=== PATIENT | female | born 1945 | race Caucasian/White ===

== ENCOUNTER 2020-08-08 04:35 | Emergency (ER) | payer MEDICARE, BC ==
[2020-08-08 04:47] VITALS: TEMP 97.8
--- NOTE | 2020-08-08 04:53 | ED ---
Chest Pain HPI - General Chief Complaint: Chest Pain Stated Complaint: Chest Pain Time Seen by Provider: 08/08/20 04:42 Source: patient, EMS Mode of arrival: EMS Limitations: no limitations - History of Present Illness Initial Comments: this patient is a 75-year-old woman who presents with chest and back pain that started around 2 AM while she was trying to go back to sleep. The patient had been up to use the bathroom. She noticed that she was having some burning type pain the substernal area and are straight through to her back. She states that the episode lasted about 2-3 minutes. When resolves tried to go back to sleep, but she had another episode. She states she had a total of about 3 or 4 episodes each lasting about 2-3 minutes. Accompanying one of the episodes she did have some tingling to both arms. She felt hot at one point. MD Complaint: other Onset/Timin -: hour(s) Onset: during rest Pain Location: other Pain Radiation: RUE, LUE, back Severity: moderate Quality: other (burning) Consistency: intermittent, now resolved Improves With: nothing Worsens With: nothing Treatments Prior to Arrival: none - Related Data Home Medications Medication Instructions Recorded Confirmed Estradiol Cream [Estrace Cream 1 applic VAGINAL SUWE 02/25/16 04/03/17 0.01%] LORazepam [Ativan] 0.5 - 1 mg PO HS PRN 02/25/16 04/03/17 Loperamide [Imodium] 2 mg PO QID PRN 04/03/17 04/03/17 Previous Rx's Medication Instructions Recorded Aspirin EC [Ecotrin Low Dose] 81 mg PO DAILY #30 tablet. 04/05/17 Allergies Allergy/AdvReac Type Severity Reaction Status Date / Time Sulfa (Sulfonamide Allergy chills,naus Verified 08/08/20 04:47 Antibiotics) ea Review of Systems ROS Statement: Those systems with pertinent positive or pertinent negative responses have been documented in the HPI. ROS Other: All systems not noted in ROS Statement are negative. EKG Findings - EKG Results: EKG: interpreted by ADAL, sinus rhythm (ate 91 bpm), normal QRS, normal ST/T - Blocks, [place], Hypertrophy, ST Abn: QRS axis and voltage: left axis deviation (-30 to -90) Past Medical History Past Medical History: No Reported History Additional Past Medical History / Comment(s): IBS, T2 T5 Fracture History of Any Multi-Drug Resistant Organisms: None Reported Past Surgical History: Breast Surgery, Cholecystectomy, Hysterectomy, Tonsillectomy Additional Past Surgical History / Comment(s): breast biopsies Past Anesthesia/Blood Transfusion Reactions: Motion Sickness Additional Past Anesthesia/Blood Transfusion Reaction / Comment(s): "balance issue" Past Psychological History: Anxiety, Depression Smoking Status: Never smoker Past Alcohol Use History: Occasional Past Drug Use History: None Reported - Past Family History Mother Family Medical History: Coronary Artery Disease (CAD), Dementia, Myocardial Infarction ([place]) Additional Family Medical History / Comment(s): Mother at age 86 with previous history of myocardial infarction at age 67 requiring CABG. Patient's grandfather at age 60 from a myocardial infarction. Patient's uncle at age 46 from a myocardial infarction and that had been his third heart attack. Father Family Medical History: Dementia Additional Family Medical History / Comment(s): Father was healthy with no major medical problems. Brother(s) Family Medical History: Cancer Additional Family Medical History / Comment(s): Patient has 1 brother with history of prostate cancer. Patient does not have any sisters. Son(s) Additional Family Medical History / Comment(s): Patient has 2 sons and one was diagnosed with diabetes mellitus type 1 at age 26 and 1 son has irritable bowel syndrome. Daughter(s) Additional Family Medical History / Comment(s): Patient has one daughter with history of rheumatoid arthritis and polycystic ovarian disorder. General Exam Limitations: no limitations General appearance: alert, in no apparent distress Head exam: Present: atraumatic, normocephalic Eye exam: Present: normal appearance. Absent: scleral icterus, conjunctival injection ENT exam: Present: normal oropharynx Neck exam: Present: normal inspection, full ROM Respiratory exam: Present: normal lung sounds bilaterally. Absent: respiratory distress, wheezes, rales, rhonchi, stridor, chest wall tenderness Cardiovascular Exam: Present: regular rate, normal rhythm, normal heart sounds. Absent: systolic murmur, diastolic murmur, rubs, gallop GI/Abdominal exam: Present: soft. Absent: distended, tenderness, guarding, rebound, rigid, mass Extremities exam: Present: normal inspection, normal capillary refill. Absent: pedal edema, calf tenderness Back exam: Present: normal inspection. Absent: CVA tenderness (R), CVA tenderness (L) Neurological exam: Present: alert Skin exam: Present: warm, dry, intact, normal color. Absent: rash Course Vital Signs 08/08/20 08/08/20 08/08/20 04:37 05:03 05:46 Temperature 97.8 F Pulse Rate 90 85 Respiratory 20 22 20 Rate Blood Pressure 142/81 130/83 O2 Sat by Pulse 98 98 Oximetry Disposition Clinical Impression: Chest pain Disposition: HOME SELF-CARE Condition: Good Instructions (If sedation given, give patient instructions): Chest Pain (ED) Is patient prescribed a controlled substance at d/c from ED?: No Referrals: Delvin Servin MD [Primary Care Provider] - 1-2 days
[2020-08-08 05:04] LABS: Basophils % (A) 1 %; Eosinophils # (A) 0.3 k/uL (0-0.7); Eosinophils % (A) 4 %; HCT 41.3 % (34.0-46.0); HGB 13.3 gm/dL (11.4-16.0); Lymphocytes # (A) 1.3 k/uL (1.0-4.8); Lymphocytes % (A) 19 %; MCH 29.7 pg (25.0-35.0); MCHC 32.2 g/dL (31.0-37.0); MCV 92.1 fL (80.0-100.0); Mean Platelet Volume 7.2; Monocytes # (A) 0.3 k/uL (0-1.0); Monocytes % (A) 5 %; Neutrophils # (A) 4.7 k/uL (1.3-7.7); Neutrophils % (A) 69 %; Platelet Count 264 k/uL (150-450); RBC 4.49 m/uL (3.80-5.40); RDW 13.3 % (11.5-15.5); WBC 6.7 k/uL (3.8-10.6)
[2020-08-08 05:15] LABS: Partial Thromboplastin Time 22.9 sec (22.0-30.0); Prothrombin Time 10.5 sec (9.0-12.0)
[2020-08-08 05:20] LABS: Albumin 4.2 g/dL (3.5-5.0); Magnesium 2.1 mg/dL (1.6-2.3); Potassium 4.6 mmol/L (3.5-5.1); Total Bilirubin 0.4 mg/dL (0.2-1.3); Total Protein 6.7 g/dL (6.3-8.2)
--- NOTE | 2020-08-08 05:28 | XR ---
EXAM: XR Chest, 2 Views CLINICAL HISTORY: ITS.REASON XR Reason: Chest Pain TECHNIQUE: Frontal and lateral views of the chest. COMPARISON: Chest radiograph April 03, 2017 FINDINGS/IMPRESSION: Hyperinflation with flattening of the diaphragms and emphysema, consistent with COPD. No focal infiltrate. Small right pleural effusion. Mild vascular congestion. Cardiomegaly. Degenerative changes of the spine. Diffuse osseous demineralization.
[2020-08-08 06:04] VITALS: BP 130/83
[2020-08-08 06:46] VITALS: PULSE 77; RESP 18
== END 2020-08-08 06:46 | disposition home or self-care (01) ==
LOC: EC 04:35
DX: R07.2 Precordial pain (principal); M54.9 Dorsalgia, unspecified; F41.9 Anxiety disorder, unspecified; F32.9 Major depressive disorder, single episode, unspecified; Z79.899 Other long term (current) drug therapy; Z88.2 Allergy status to sulfonamides; Z90.49 Acquired absence of other specified parts of digestive tract; Z90.710 Acquired absence of both cervix and uterus; Z82.49 Family history of ischemic heart disease and other diseases of the circulatory system
CPT/HCPCS: 36415; 71046; 80053; 82150; 83690; 83735; 84484; 85025; 85610; 85730; 93005; 99285

== ENCOUNTER → 2022-05-31 | Outpatient (CLI) | payer MEDICARE, BC ==
--- NOTE | 2022-06-01 09:57 | CA ---
Transthoracic Echo Report Name: Doretha Guevara Age: 76 Gender: F : 1945 Exam Date: 05/31/2022 14:13 Exam Location: [facility] Ht (in): 67 Wt (lb): 150 Ordering Physician: Delvin Servin MD Attending/Referring Phys: [employer] Machine Tender Vandana Dexter RDCS Procedure CPT: Indications: R06.02 SOB Cardiac Hx: Technical Quality: Good Contrast 1: N/A Total Dose (mL): Contrast 2: Total Dose (mL): MEASUREMENTS (Male / Female) Normal Values 2D ECHO LV Diastolic Diameter PLAX 4.3 cm 4.2 - 5.9 / 3.9 - 5.3 cm LV Systolic Diameter PLAX 2.6 cm IVS Diastolic Thickness 1.2 cm 0.6 - 1.0 / 0.6 - 0.9 cm LVPW Diastolic Thickness 0.9 cm 0.6 - 1.0 / 0.6 - 0.9 cm LV Relative Wall Thickness 0.5 RV Internal Dim ED PLAX 2.4 cm LA Systolic Diameter LX 3.5 cm 3.0 - 4.0 / 2.7 - 3.8 cm M-MODE Aortic Root Diameter MM 2.8 cm LA Systolic Diameter MM 3.8 cm LA Ao Ratio MM 1.3 MV E Point Septal Separation 0.4 cm AV Cusp Separation MM 1.8 cm DOPPLER MV Area PHT 4.8 cm??? Mitral E Point Velocity 70.2 cm/s Mitral A Point Velocity 51.3 cm/s Mitral E to A Ratio 1.4 MV Deceleration Time 156.5 ms MV E' Velocity 9.6 cm/s Mitral E to MV E' Ratio 7.3 FINDINGS Left Ventricle Normal left ventricular size, wall thickness, left ventricular ejection fraction is estimated at 55%. Right Ventricle The right ventricle is normal in size and function. Right Atrium The right atrium is normal in size. Left Atrium The left atrium is normal in size. Mitral Valve Structurally normal mitral valve without significant stenosis or prolapse. There is mild mitral regurgitation. Aortic Valve Structurally normal aortic valve without significant sclerosis or stenosis. There is no aortic regurgitation. Tricuspid Valve Structurally normal tricuspid valve without significant stenosis. Pulmonary artery systolic pressure is normal. Pulmonic Valve Structurally normal pulmonic valve without significant stenosis. There is no pulmonic regurgitation. Pericardium Normal pericardium without effusion. Aorta Normal aortic root dimension. CONCLUSIONS Left ventricular ejection fraction 55% Mild mitral regurgitation RVSP normal No pericardial effusion Previewed by: Dr. Fawad Avila DO (Electronically Signed) Final Date: 01 June 2022 09:57
== END | disposition home or self-care (01) ==
LOC: RADECHMAIN 13:38
PROVIDERS: ATTEND Internal Medicine Geriatric Medicine
DX: I34.0 Nonrheumatic mitral (valve) insufficiency (principal)
CPT/HCPCS: 93306

== ENCOUNTER 2022-12-15 08:36 | Day surgery (SDC) | payer MEDICARE, BC ==
[2022-12-09 15:25] VITALS: BMI 23.9
[2022-12-15] MEDS ORDERED: LACTATED RINGERS 1,000 ML IV ONE (09:11)
[2022-12-15] MEDS ORDERED: LACTATED RINGERS 1,000 ML IV SCH (09:13)
[2022-12-15] MEDS ORDERED: LIDOCAINE 1% (10MG/ML) FOR IV START INTRADERMA PRN (09:13)
[2022-12-15] MEDS ORDERED: ONDANSETRON 4 MG/2 ML VIAL IVP PRN (09:13)
[2022-12-15 09:19] VITALS: TEMP 97
[2022-12-15] MEDS ORDERED: PROPOFOL 10 MG/ML 20 ML VIAL IV ONE (10:06)
[2022-12-15] MEDS ORDERED: LIDOCAINE 2% INJ 20 MG/ML (2 ML VIAL) ONE (10:06)
[2022-12-15] MEDS ORDERED: SODIUM CHLORIDE 0.9% 500 ML 500 ML IV ONE (10:38)
--- NOTE | 2022-12-15 10:39 | P.PCN ---
Date of Procedure: 12/15/22 Procedure(s) Performed: BRIEF HISTORY: Patient is a 77-year-old pleasant white female scheduled for an elective colonoscopy as a part of evaluation of chronic diarrhea of several years duration. PROCEDURE PERFORMED: Colonoscopy with random biopsies. PREOPERATIVE DIAGNOSIS: Chronic diarrhea. IV sedation per Anesthesia. PROCEDURE: After informed consent was obtained, the patient, was brought into the endoscopy unit. IV sedation was administered by Anesthesia under continuous monitoring. Digital rectal examination was normal. Initially the Olympus CF-160 flexible video colonoscope was then inserted in the rectum, gradually advanced into the sigmoid and further advancement was not possible because of acute angle duration this area. The scope was removed and a pediatric colonoscopy was then introduced into the rectum and still could not advance the scope through the sigmoid colon. Hence at this time I used an upper endoscopy as the scope was then gradually advanced into the cecum with [id number] difficulty. Careful examination was performed as the scope was gradually being withdrawn. Ileocecal vawasisualized and appeared normal. Prep was excellent. Mucosa of the cecum, ascending colon, transverse colon, descending colon, sigmoid colon, and rectum appeared normal. Random biopsies were done from ascending and descending colon to rule out microscopic/collagenous colitis. Scattered sigmoid diverticulosis seen. Retroflexion was performed in the rectum and no lesions were seen. The patient tolerated the procedure well. IMPRESSION: Normal-appearing colon from rectum to cecum with no evidence of colorectal neoplasia . Scattered sigmoid diverticulosis. RECOMMENDATIONS: Findings of this examination were discussed with the patient is a family. She was advised to follow with the biopsy results.. Continue with Questran as needed.
[2022-12-15 10:49] VITALS: PULSE 67
[2022-12-15 11:02] VITALS: BP 155/87; RESP 16
== END 2022-12-15 11:20 | disposition home or self-care (01) ==
LOC: ORWHC2ENDO 08:36
PROVIDERS: ATTEND Internal Medicine Gastroenterology
DX: K52.9 Noninfective gastroenteritis and colitis, unspecified (principal); K57.30 Diverticulosis of large intestine without perforation or abscess without bleeding
CPT/HCPCS: 45380; J2704; J2001; 88305

== ENCOUNTER 2023-12-02 17:10 | Observation (INO) | payer MEDICARE, BC ==
--- NOTE | 2023-12-02 17:33 | ED ---
Altered Mental Status HPI - General Source: patient, family, RN notes reviewed Mode of arrival: ambulatory Limitations: no limitations <Gayatri Arevalo - Last Filed: 12/02/23 17:32> <Dayron Galan - Last Filed: 12/02/23 23:51> - General Chief Complaint: Altered Mental Status Stated Complaint: AMS/blurry vision Time Seen by Provider: 12/02/23 17:32 - History of Present Illness Initial Comments: Patient is a 78-year-old female presented to the ER with chief complaint of confusion. Patient states she woke up this morning and has been extremely confused all day. Patient also was endorsing mid back pain. Denies any other complaints. (Gayatri Arevalo) 78-year-old female presents to the ED with a chief complaint of confusion. Per patient, has been very confused starting today. States that she incorrectly thought her parents were at the door when it was actually [facility] although her parents have been for the past 10 years. Per sons, upon questioning reportedly answers questions incorrectly. Patient also additionally notes some visual hallucinations as well. While in the ED, she told a nurse that she saw a puff of smoke, out of her computer. No chest pain or shortness of breath. Patient does note some intermittent abdominal pain as well. No changes in bowel or bladder habits. No fever or chills. No other complaints at this time. (Dayron Galan) - Related Data Home Medications Medication Instructions Recorded Confirmed LORazepam [Ativan] 0.5 - 1 mg PO HS PRN 02/25/16 12/15/22 Cholestyramine (with Sugar) 378 gm PO DAILY 12/09/22 12/15/22 [Cholestyramine Powder] Escitalopram [Lexapro] 10 mg PO DAILY 12/09/22 12/15/22 L.acidoph,Paracasei, B.lactis 1 each PO DAILY 12/09/22 12/15/22 [Probiotic] Latanoprost [Latanoprost 0.005%] 1 drop RIGHT EYE HS 12/09/22 12/15/22 Allergies Allergy/AdvReac Type Severity Reaction Status Date / Time Sulfa (Sulfonamide Allergy chills,naus Verified 12/15/22 09:13 Antibiotics) ea Review of Systems ROS Other: All systems not noted in ROS Statement are negative. <Gayatri Arevalo - Last Filed: 12/02/23 17:32> ROS Other: All systems not noted in ROS Statement are negative. <Dayron Galan - Last Filed: 12/02/23 23:51> ROS Statement: Those systems with pertinent positive or pertinent negative responses have been documented in the HPI. 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 History of Any Multi-Drug Resistant Organisms: None Reported Past Surgical History: Breast Surgery, Cholecystectomy, Hysterectomy, Tonsillectomy Additional Past Surgical History / Comment(s): breast biopsies, COLONOSCOPY Past Anesthesia/Blood Transfusion Reactions: Motion Sickness Additional Past Anesthesia/Blood Transfusion Reaction / Comment(s): "balance issue" Past Psychological History: Anxiety, Depression Smoking Status: Never smoker - Past Family History Mother Family Medical History: Coronary Artery Disease (CAD), Dementia, Myocardial Infarction (MS) Additional Family Medical History / Comment(s): Mother at age 86 with previous history of myocardial infarction at age 67 requiring CABG. Patient's grandfather at age 60 from a myocardial infarction. Patient's uncle at age 46 from a myocardial infarction and that had been his third heart attack. Father Family Medical History: Dementia Additional Family Medical History / Comment(s): Father was healthy with no major medical problems. Brother(s) Family Medical History: Cancer Additional Family Medical History / Comment(s): Patient has 1 brother with history of prostate cancer. Patient does not have any sisters. Son(s) Additional Family Medical History / Comment(s): Patient has 2 sons and one was diagnosed with diabetes mellitus type 1 at age 26 and 1 son has irritable bowel syndrome. Daughter(s) Additional Family Medical History / Comment(s): Patient has one daughter with history of rheumatoid arthritis and polycystic ovarian disorder. <Gayatri Arevalo - Last Filed: 12/02/23 17:32> General Exam Limitations: no limitations <Gayatri Arevalo - Last Filed: 12/02/23 17:32> General appearance: alert, in no apparent distress Eye exam: Present: normal appearance, PERRL, EOMI Neck exam: Present: normal inspection Respiratory exam: Present: normal lung sounds bilaterally Cardiovascular Exam: Present: regular rate, normal rhythm GI/Abdominal exam: Present: soft Back exam: Present: normal inspection Neurological exam: Present: alert, oriented X3, CN II-XII intact (Rapid alternating hand movements, cjnf-by-tnaj, [id number]-[id number] intact) Skin exam: Present: warm, dry <Dayron Galan - Last Filed: 12/02/23 23:51> - General Exam Comments Initial Comments: Visual Physical Exam Vital signs reviewed General: Well-appearing, nontoxic, no acute distress. Head: Normocephalic, atraumatic Eyes: PERRLA, EOMI ENT: Airway patent Chest: Nonlabored breathing Skin: No visual rash, normal skin tone Neuro: Alert and oriented 3 Musculoskeletal: No gross abnormalities (Gayatri Arevalo) Course Vital Signs 12/02/23 12/02/23 17:17 22:20 Temperature 99.3 F 97.9 F Pulse Rate 94 77 Respiratory 16 16 Rate Blood Pressure 174/96 151/81 O2 Sat by Pulse 97 97 Oximetry Medical Decision Making <Gayatri Arevalo - Last Filed: 12/02/23 17:32> - Lab Data Result diagrams: 12/02/23 17:41 12/02/23 17:41 <Dayron Galan - Last Filed: 12/02/23 23:51> - Medical Decision Making I performed the quick note portion of this chart. Electronically signed by Gayatri Arevalo PA-C (Gayatri Arevalo) Was pt. sent in by a medical professional or institution (SIM Singh, CREAM SEPARATOR OPERATOR, urgent care, hospital, or care home...) When possible be specific @ -No Did you speak to anyone other than the patient for history (EMS, parent, family, police, friend...)? What history was obtained from this source @ -Spoke to patient's sons for parts of history. Did you review nursing and triage notes (agree or disagree)? Why? @ -I reviewed and agree with nursing and triage notes Were old charts reviewed (outside hosp., previous admission, EMS record, old EKG, old radiological studies, urgent care reports/EKG's, care home records)? Report findings @ -No old charts were reviewed Differential Diagnosis (chest pain, altered mental status, abdominal pain women, abdominal pain men, vaginal bleeding, weakness, fever, dyspnea, syncope, headache, dizziness, GI bleed, back pain, seizure, CVA, palpatations, mental health, musculoskeletal)? @ -Differential Altered Mental Status: Hypoglycemia, DKA, hypercapnia, ETOH, overdose, CO poisoning, trauma, myxedema coma, HTN encephalopathy, infection, encephalitis, psychosis, intercranial hemorrhage, hepatic encephalopathy, meningitis, CVA, this is not meant to be an all-inclusive list EKG interpreted by me (3pts min.). @ -EKG interpreted by me showing a sinus rhythm at 90 bpm with nonspecific changes. WV 204, QRS 83, QT/QTc 372/420. X-rays interpreted by me (1pt min.). @ -Chest x-ray interpreted me showing no evidence of acute finding CT interpreted by me (1pt min.). @ -CT brain interpreted me showing no evidence of acute finding. U/S interpreted by me (1pt. min.). @ -None done What testing was considered but not performed or refused? (CT, X-rays, U/S, labs)? Why? @ -None What meds were considered but not given or refused? Why? @ -None Did you discuss the management of the patient with other professionals (professionals i.e. , PA, CREAM SEPARATOR OPERATOR, lab, RT, psych nurse, social welfare research worker, golf sales manager, teacher, information management officer, case finisher)? Give summary @ -Case discussed with Dr. Servin, who accepts admission Was smoking cessation discussed for >3mins.? @ -No Was critical care preformed (if so, how long)? @ -No Were there social determinants of health that impacted care today? How? (Homelessness, low income, unemployed, alcoholism, drug addiction, transportation, low edu. Level, literacy, decrease access to med. care, senior care, rehab)? @ -No Was there de-escalation of care discussed even if they declined (Discuss DNR or withdrawal of care, Hospice)? DNR status @ -No What co-morbidities impacted this encounter? (DM, HTN, Smoking, COPD, CAD, Cancer, CVA, ARF, Chemo, Hep., AIDS, mental health diagnosis, sleep apnea, morbid obesity)? @ -None Was patient admitted / discharged? Hospital course, mention meds given and route , prescriptions, significant lab abnormalities, going to OR and other pertinent info. @ -Admission 78-year-old female presenting to the ED with 1 day onset of intermittent confusion and intermittent visual hallucinations. Laboratory studies at this time including CBC, CMP, UA, troponin, serology panel largely unremarkable. Imaging studies including chest x-ray and CT brain revealed no acute process. With ongoing confusion and intermittent visual hallucinations patient will be a dmitted to observation with consult to neurology. Undiagnosed new problem with uncertain prognosis? @ -No Drug Therapy requiring intensive monitoring for toxicity (Heparin, Nitro, Insulin, Cardizem)? @ -No Were any procedures done? @ -No Diagnosis/symptom? @ -Confusion, visual hallucinations Acute, or Chronic, or Acute on Chronic? @ -Acute Uncomplicated (without systemic symptoms) or Complicated (systemic symptoms)? @ -Complicated Side effects of treatment? @ -No Exacerbation, Progression, or Severe Exacerbation? @ -No Poses a threat to life or bodily function? How? (Chest pain, USA, MS, pneumonia, PE, COPD, DKA, ARF, appy, cholecystitis, CVA, Diverticulitis, Homicidal, Suicidal, threat to staff... and all critical care pts) @ -Unlikely (Dayron Galan) - Lab Data Lab Results 12/02/23 12/02/23 12/02/23 Range/Units 17:41 17:41 17:41 WBC 5.5 (3.8-10.6) k/uL RBC 4.46 (3.80-5.40) m/uL Hgb 13.3 (11.4-16.0) gm/dL Hct 41.1 (34.0-46.0) % MCV 92.3 (80.0-100.0) fL MCH 29.9 (25.0-35.0) pg MCHC 32.4 (31.0-37.0) g/dL RDW 13.2 (11.5-15.5) % Plt Count 252 (150-450) k/uL MPV 7.3 Neutrophils % 70 % Lymphocytes % 20 % Monocytes % 5 % Eosinophils % 2 % Basophils % 1 % Neutrophils # 3.9 (1.3-7.7) k/uL Lymphocytes # 1.1 (1.0-4.8) k/uL Monocytes # 0.3 (0-1.0) k/uL Eosinophils # 0.1 (0-0.7) k/uL Basophils # 0.0 (0-0.2) k/uL PT 10.3 (10.0-12.5) sec INR 0.9 (<1.2) APTT 24.5 (22.0-30.0) sec Sodium 139 (137-145) mmol/L Potassium 3.9 (3.5-5.1) mmol/L Chloride 107 (98-107) mmol/L Carbon Dioxide 23 (22-30) mmol/L Anion Gap 9 mmol/L BUN 15 (7-17) mg/dL Creatinine 0.72 (0.52-1.04) mg/dL Est GFR (CKD-EPI)AfAm >90 (>60 ml/min/1.73 sqM) Est GFR (CKD-EPI)NonAf 82 (>60 ml/min/1.73 sqM) Glucose 95 (74-99) mg/dL Calcium 9.4 (8.4-10.2) mg/dL Total Bilirubin 0.6 (0.2-1.3) mg/dL AST 32 (14-36) U/L ALT 16 (4-34) U/L Alkaline Phosphatase 103 (38-126) U/L Troponin I (0.000-0.034) ng/mL Total Protein 7.2 (6.3-8.2) g/dL Albumin 4.5 (3.5-5.0) g/dL Urine Color Urine Appearance (Clear) Urine pH (5.0-8.0) Ur Specific [place] (1.001-1.035) Urine Protein (Negative) Urine Glucose (UA) (Negative) Urine Ketones (Negative) Urine Blood (Negative) Urine Nitrite (Negative) Urine Bilirubin (Negative) Urine Urobilinogen (<2.0) mg/dL Ur Leukocyte Esterase (Negative) Urine RBC (0-5) /hpf Urine WBC (0-5) /hpf Ur Squamous Epith Cells (0-4) /hpf Urine Bacteria (None) /hpf Urine Mucus (None) /hpf Urine Opiates Screen (NotDetected) Ur Oxycodone Screen (NotDetected) Urine Methadone Screen (NotDetected) Ur Barbiturates Screen (NotDetected) U Tricyclic Antidepress (NotDetected) Ur Phencyclidine Scrn (NotDetected) Ur Amphetamines Screen (NotDetected) U Methamphetamines Scrn (NotDetected) U Benzodiazepines Scrn (NotDetected) Urine Cocaine Screen (NotDetected) U Marijuana (THC) Screen (NotDetected) Influenza Type A (PCR) (Not Detectd) Influenza Type B (PCR) (Not Detectd) RSV (PCR) (Not Detectd) SARS-CoV-2 (PCR) (Not Detectd) 12/02/23 12/02/23 12/02/23 Range/Units 17:41 17:43 22:30 WBC (3.8-10.6) k/uL RBC (3.80-5.40) m/uL Hgb (11.4-16.0) gm/dL Hct (34.0-46.0) % MCV (80.0-100.0) fL MCH (25.0-35.0) pg MCHC (31.0-37.0) g/dL RDW (11.5-15.5) % Plt Count (150-450) k/uL MPV Neutrophils % % Lymphocytes % % Monocytes % % Eosinophils % % Basophils % % Neutrophils # (1.3-7.7) k/uL Lymphocytes # (1.0-4.8) k/uL Monocytes # (0-1.0) k/uL Eosinophils # (0-0.7) k/uL Basophils # (0-0.2) k/uL PT (10.0-12.5) sec INR (<1.2) APTT (22.0-30.0) sec Sodium (137-145) mmol/L Potassium (3.5-5.1) mmol/L Chloride (98-107) mmol/L Carbon Dioxide (22-30) mmol/L Anion Gap mmol/L BUN (7-17) mg/dL Creatinine (0.52-1.04) mg/dL Est GFR (CKD-EPI)AfAm (>60 ml/min/1.73 sqM) Est GFR (CKD-EPI)NonAf (>60 ml/min/1.73 sqM) Glucose (74-99) mg/dL Calcium (8.4-10.2) mg/dL Total Bilirubin (0.2-1.3) mg/dL AST (14-36) U/L ALT (4-34) U/L Alkaline Phosphatase (38-126) U/L Troponin I <0.012 (0.000-0.034) ng/mL Total Protein (6.3-8.2) g/dL Albumin (3.5-5.0) g/dL Urine Color Colorless Urine Appearance Cloudy H (Clear) Urine pH 5.5 (5.0-8.0) Ur Specific [place] 1.011 (1.001-1.035) Urine Protein Negative (Negative) Urine Glucose (UA) Negative (Negative) Urine Ketones 1+ H (Negative) Urine Blood Trace H (Negative) Urine Nitrite Negative (Negative) Urine Bilirubin Negative (Negative) Urine Urobilinogen <2.0 (<2.0) mg/dL Ur Leukocyte Esterase Negative (Negative) Urine RBC 4 (0-5) /hpf Urine WBC 12 H (0-5) /hpf Ur Squamous Epith Cells 5 H (0-4) /hpf Urine Bacteria Few H (None) /hpf Urine Mucus Rare H (None) /hpf Urine Opiates Screen Detected H (NotDetected) Ur Oxycodone Screen Not Detected (NotDetected) Urine Methadone Screen Not Detected (NotDetected) Ur Barbiturates Screen Not Detected (NotDetected) U Tricyclic Antidepress Not Detected (NotDetected) Ur Phencyclidine Scrn Not Detected (NotDetected) Ur Amphetamines Screen Not Detected (NotDetected) U Methamphetamines Scrn Not Detected (NotDetected) U Benzodiazepines Scrn Detected H (NotDetected) Urine Cocaine Screen Not Detected (NotDetected) U Marijuana (THC) Screen Not Detected (NotDetected) Influenza Type A (PCR) Not Detected (Not Detectd) Influenza Type B (PCR) Not Detected (Not Detectd) RSV (PCR) Not Detected (Not Detectd) SARS-CoV-2 (PCR) Not Detected (Not Detectd) Disposition <Gayatri Arevalo - Last Filed: 12/02/23 17:32> Time of Disposition: 23:30 <Dayron Galan - Last Filed: 12/02/23 23:51> Clinical Impression: Confusion, Visual hallucinations Disposition: ADMITTED IP TO THIS HOSP Condition: Good Referrals: Delvin Servin MD [Primary Care Provider] - 1-2 days
[2023-12-02 17:55] LABS: Basophils % (A) 1 %; Eosinophils # (A) 0.1 k/uL (0-0.7); Eosinophils % (A) 2 %; HCT 41.1 % (34.0-46.0); HGB 13.3 gm/dL (11.4-16.0); Lymphocytes # (A) 1.1 k/uL (1.0-4.8); Lymphocytes % (A) 20 %; MCH 29.9 pg (25.0-35.0); MCHC 32.4 g/dL (31.0-37.0); MCV 92.3 fL (80.0-100.0); Mean Platelet Volume 7.3; Monocytes # (A) 0.3 k/uL (0-1.0); Monocytes % (A) 5 %; Neutrophils # (A) 3.9 k/uL (1.3-7.7); Neutrophils % (A) 70 %; Platelet Count 252 k/uL (150-450); RBC 4.46 m/uL (3.80-5.40); RDW 13.2 % (11.5-15.5); WBC 5.5 k/uL (3.8-10.6)
[2023-12-02 18:09] LABS: ALT 16 U/L (4-34); AST 32 U/L (14-36); African American GFR (CKD) >90 (>60 ml/min/1.73 sqM); Albumin 4.5 g/dL (3.5-5.0); Alkaline Phosphatase 103 U/L (38-126); Anion Gap 9 mmol/L; Blood Urea Nitrogen 15 mg/dL (7-17); Calcium 9.4 mg/dL (8.4-10.2); Carbon Dioxide 23 mmol/L (22-30); Chloride 107 mmol/L (98-107); Glucose 95 mg/dL (74-99); Non-African American GFR(CKD) 82 (>60 ml/min/1.73 sqM); Potassium 3.9 mmol/L (3.5-5.1); Sodium 139 mmol/L (137-145); Total Bilirubin 0.6 mg/dL (0.2-1.3); Total Protein 7.2 g/dL (6.3-8.2)
[2023-12-02 18:21] LABS: INR 0.9 (<1.2); Partial Thromboplastin Time 24.5 sec (22.0-30.0); Prothrombin Time 10.3 sec (10.0-12.5)
--- NOTE | 2023-12-02 18:24 | CT ---
EXAMINATION TYPE: CT brain wo con CT DLP: 1134.4 mGycm, Automated exposure control for dose reduction was used. DATE OF EXAM: 12/02/2023 6:12 PM COMPARISON: None. CLINICAL INDICATION:Female, 78 years old with history of confusion, confusion TECHNIQUE: Brain: Axial CT images of the brain were obtained with coronal and sagittal reformats created and rev iewed. Contrast used: None. Oral contrast used: None. FINDINGS: Brain: Extra-axial spaces: No abnormal extra-axial fluid collections. Ventricular system: Dilatation in proportion to cerebral atrophy. Cerebral parenchyma: Cerebral atrophy. No acute intraparenchymal hemorrhage or mass effect. The wu -white junction is well differentiated. Scattered hypoattenuating areas are seen within the white mat ter. Cerebellum: Unremarkable. Mass effect: No evidence of midline shift. Intracranial vasculature: Atherosclerotic calcifications of the intracranial vessels. Soft tissues: Normal. Calvarium/osseous structures: No depressed skull fracture. Paranasal sinuses and mastoid air cells: Mild scattered paranasal sinus disease. Visualized orbits: Orbital contents are intact. IMPRESSION: 1. No acute intracranial process. 2. Nonspecific white matter changes, likely secondary to chronic small vessel ischemic disease.
--- NOTE | 2023-12-02 18:58 | XR ---
EXAMINATION TYPE: XR chest 2V DATE OF EXAM: 12/02/2023 6:40 PM CLINICAL INDICATION:Female, 78 years old with history of altered mental status; [facility] COMPARISON: Chest radiographs from 08/08/2020 TECHNIQUE: XR chest 2V Frontal and lateral views of the chest. FINDINGS: Lungs/Pleura: There is no evidence of pleural effusion, focal consolidation, or pneumothorax. Pulmonary vascularity: Unremarkable. Heart/mediastinum: Cardiomediastinal silhouette is unremarkable. Musculoskeletal: No acute osseous pathology. Other findings: None IMPRESSION: 1. No acute cardiopulmonary disease process. 2. COPD changes.
[2023-12-02 22:53] LABS: Appearance,Urine Cloudy (Clear); Bacteria,Urine Few /hpf; Bilirubin,Urine Negative (Negative); Blood,Urine Trace (Negative); Color,Urine Colorless; Glucose,Urine (UA) Negative (Negative); Ketones,Urine 1+ (Negative); Leukocyte Esterase,Urine Negative (Negative); Mucus,Urine Rare /hpf; Nitrite,Urine Negative (Negative); PH, Urine 5.5 (5.0-8.0); Protein,Urine Negative (Negative); RBC,Urine 4 /hpf (0-5); Specific Gravity,Urine 1.011 (1.001-1.035); Squamous Epithelial Cell,Urine 5 /hpf (0-4); Urobilinogen,Urine <2.0 mg/dL (<2.0); WBC,Urine 12 /hpf (0-5)
[2023-12-02 23:02] LABS: Amphetamine Screen,Urine Not Detected (NotDetected); Barbiturate Screen,Urine Not Detected (NotDetected); Benzodiazepines Screen,Urine Detected (NotDetected); Cocaine Screen,Urine Not Detected (NotDetected); Methadone Screen, Urine Not Detected (NotDetected); Opiate Screen,Urine Detected (NotDetected); Oxycodone Screen, Urine Not Detected (NotDetected); Phencyclidine Screen,Urine Not Detected (NotDetected); Tricyclic Antidepressant,Urine Not Detected (NotDetected); Urn Cannabinoid Scrn Not Detected (NotDetected)
[2023-12-02] MEDS ORDERED: NALOXONE 0.4 MG/ML 1 ML VIAL IV PRN (23:52)
[2023-12-03] MEDS: SODIUM CHLORIDE 0.9% 1,000 ML IV SCH (00:22)
[2023-12-03] MEDS: KETOROLAC 15 MG/ML 1 ML VIAL IVP STA (00:43)
[2023-12-03] MEDS: LORazepam 2 MG/ML INJ IV STA (00:45)
--- NOTE | 2023-12-03 08:20 | US ---
EXAMINATION TYPE: US carotid duplex BILAT DATE OF EXAM: 12/03/2023 COMPARISON: NONE CLINICAL INDICATION: Female, 78 years old with history of TIA; HTN. Confusion. Visual hallucination s. TECHNIQUE: Carotid duplex ultrasound examination. Indirect Doppler criteria was utilized. FINDINGS: EXAM MEASUREMENTS: RIGHT: Peak Systolic Velocity (PSV) cm/sec ----- Right CCA: 49.5 ----- Right ICA: 60.7 ----- Right ECA: 75.6 ICA/CCA ratio: 1.2 RIGHT: End Diastole cm/sec ----- Right CCA: 14.7 ----- Right ICA: 18.8 ----- Right ECA: 12.7 LEFT: Peak Systolic Velocity (PSV) cm/sec ----- Left CCA: 49.6 ----- Left ICA: 74.7 ----- Left ECA: 79.9 ICA/CCA ratio: 1.5 LEFT: End Diastole cm/sec ----- Left CCA: 12.1 ----- Left ICA: 25.8 ----- Left ECA: 11.9 VERTEBRALS (direction of flow): Right Vertebral: Antegrade Left Vertebral: Antegrade Rhythm: Normal NETWORK PROGRAMMER NOTES: No plaque, wall thickening or elevated velocities. IMPRESSION: No hemodynamically significant stenosis in either internal carotid artery. Criteria for Assigning % of Stenosis / Diameter reduction (Estimation based on the indirect measurements of the internal carotid artery velocities (ICA PSV). 1. Normal (no stenosis)=ICA PSV < 125 cm/s: ratio < 2.0: ICA EDV<40 cm/s. 2. Less than 50% stenosis=ICA PSV < 125 cm/s: ratio < 2.0: ICA EDV<40 cm/s. 3. 50 to 69% stenosis=ICA PSV of 125 to 230 cm/s: ration 2.0 ? 4.0: ICA EDV 40-100 cm/s. 4. Greater than 70% stenosis to near occlusion= ICA PSV > 230 cm/s: ratio > 4.0: ICA EDV > 100 cm/s. 5. Near occlusion= ICA PSV velocities may be low or undetectable: variable ratio and ICA EDV. 6. Total occlusion=unable to detect flow.
[2023-12-03] MEDS: ESCITALOPRAM 10 MG TAB PO SCH (08:34)
[2023-12-03] MEDS: CHOLESTYRAMINE (WITH SUGAR) 4 GM PACKET PO SCH (08:34)
[2023-12-03] MEDS: FAMOTIDINE 20 MG TAB PO SCH (08:35)
[2023-12-03] MEDS: LACTOBACILLUS ACIDOPHILUS/PECT 1 EACH CAPSULE PO SCH (08:35)
--- NOTE | 2023-12-03 11:40 | P.CNNES ---
History of Present Illness Consult date: 12/03/23 Requesting physician: Delvin Servin Reason for Consult: altered mental status History of Present Illness: This is a 78-year-old woman who presented emergency department because of confusion. Patient stated that this past Tuesday she was having episode of confusion feeling off. Also recently she felt that her parents were at her house even though they are for 10 years. She stated that she did not see them but she stated that she woke up confused and then when her kids came to her house she thought her parents were over house. Patient stated that towards the end of September 2023 she had a syncopal episode at home. She denies any tongue bite, urinary incontinence or bowel incontinence. She denies any aura prior to this episode. She is having this feeling of off on and off/presyncopal episodes for years and the last episode was about 10-15 years ago in which she feels the blood is rushing into her ears and peripheral vision appears dark. 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 She only had one syncopal episode and that was in end September 2023. She denies any history of stroke or seizures. She has chronic ongoing back pain and [facility] Some of the work-up during this hospital visit consisted of: Patient is afebrile On initial presentation her blood pressure is 174/96. CBC with differential is unremarkable Chemistry panel is unremarkable Urinalysis does not An acute urinary tract infection. UDS: +opiates and Benzo. CT of the head is reported as no acute intracranial process. Nonspecific white matter changes, likely secondary due to chronic small vessel ischemic disease. I personally reviewed the CT and agree with the report. Carotid duplex: Is reported as no hemodynamically significant stenosis in either internal carotid artery. EKG: It is reported as sinus rhythm. Low QRS voltage. Possible right ventricular conduction the delay. Minimal ST depression. Borderline EKG. In the ED seems the patient was given Ativan 1 mg once. Review of Systems Review of system: The 12 point system was reviewed and apparent positive and negative per HPI. Past Medical History Past Medical History: No Reported History Additional Past Medical History / Comment(s): IBS, T2 T5 Fracture, EAS HOSPITALIZED 3 OR 4 YRS AGO IN [place] FOR COLITIS, INCREASED PRESSURE RT EYE- CURRENTLY STABLE WITH EYEDROPS History of Any Multi-Drug Resistant Organisms: None Reported Past Surgical History: Breast Surgery, Cholecystectomy, Hysterectomy, Tonsillectomy Additional Past Surgical History / Comment(s): breast biopsies, COLONOSCOPY Past Anesthesia/Blood Transfusion Reactions: Motion Sickness Additional Past Anesthesia/Blood Transfusion Reaction / Comment(s): "balance issue" Past Psychological History: Anxiety, Depression Smoking Status: Never smoker - Past Family History Mother Family Medical History: Coronary Artery Disease (CAD), Dementia, Myocardial Infarction ([place]) Additional Family Medical History / Comment(s): Mother at age 86 with previous history of myocardial infarction at age 67 requiring CABG. Patient's grandfather at age 60 from a myocardial infarction. Patient's uncle at age 46 from a myocardial infarction and that had been his third heart attack. Father Family Medical History: Dementia Additional Family Medical History / Comment(s): Father was healthy with no major medical problems. Brother(s) Family Medical History: Cancer Additional Family Medical History / Comment(s): Patient has 1 brother with history of prostate cancer. Patient does not have any sisters. Son(s) Additional Family Medical History / Comment(s): Patient has 2 sons and one was diagnosed with diabetes mellitus type 1 at age 26 and 1 son has irritable bowel syndrome. Daughter(s) Additional Family Medical History / Comment(s): Patient has one daughter with history of rheumatoid arthritis and polycystic ovarian disorder. Medications and Allergies Home Medications Medication Instructions Recorded Confirmed Type LORazepam [Ativan] 0.5 - 1 mg PO HS PRN 02/25/16 12/15/22 History Cholestyramine (with Sugar) 378 gm PO DAILY 12/09/22 12/15/22 History [Cholestyramine Powder] Escitalopram [Lexapro] 10 mg PO DAILY 12/09/22 12/15/22 History L.acidoph,Paracasei, B.lactis 1 each PO DAILY 12/09/22 12/15/22 History [Probiotic] Latanoprost [Latanoprost 0.005%] 1 drop RIGHT EYE HS 12/09/22 12/15/22 History Allergies Allergy/AdvReac Type Severity Reaction Status Date / Time Sulfa (Sulfonamide Allergy chills,naus Verified 12/15/22 09:13 Antibiotics) ea Physical Examination - Vital Signs Vital Signs: Vital Signs Temp Pulse Resp BP Pulse Ox 12/03/23 07:24 69 16 146/65 96 12/03/23 06:50 65 16 12/03/23 04:50 97.4 F L 66 15 126/72 96 12/03/23 00:51 76 16 154/90 96 12/03/23 00:08 74 16 161/90 96 12/02/23 22:20 97.9 F 77 16 151/81 97 12/02/23 17:17 99.3 F 94 16 174/96 97 Intake and Output 12/02/23 12/03/23 12/03/23 22:59 06:59 14:59 Other: # Voids 1 Weight 70.307 kg GENERAL: The patient is lying in bed and is not in acute distress. NEUROLOGICAL: Higher mental function: The patient is awake, alert, oriented to self, place and time. Patient is following commands. No aphasia and no neglect. Cranial nerves: The pupils are round, equal and reactive to light and accommodation. Visual prasad are full to confrontation throughout. Extraocular movement is intact no nystagmus is noted. Facial sensation is normal to touch throughout. The facial strength is normal throughout. Hearing is normal bilaterally to hand rub. Tongue is midline and moved [id number] without any difficulty. No dysarthria is noted. Shoulder shrug is normal bilaterally. Motor: The strength is 5 over 5 throughout. Normal tone and bulk. Cerebellum: Normal finger to nose bilaterally. Sensation: Sensation is normal to touch throughout. Reflexes (right/left): 2+ throughout. Plantars are downgoing bilaterally. Results - Laboratory Findings CBC and BMP: 12/02/23 17:41 12/02/23 17:41 Abnormal Lab Findings: Abnormal Labs 12/02/23 22:30 Urine Appearance Cloudy H Urine Ketones 1+ H Urine Blood Trace H Urine WBC 12 H Ur Squamous Epith Cells 5 H Urine Bacteria Few H Urine Mucus Rare H Urine Opiates Screen Detected H U Benzodiazepines Scrn Detected H Assessment and Plan Assessment: This is a 78-year-old woman who presents because of confusion. She stated that this past Tuesday she was confused feeling off as well as recently she thought her parents were over her house even though they are for the past 10 years. She had a syncopal episode in the end of September 2023 as well as been having this intermittent presyncopal episodes and the last episode was 10-15 years ago in which she'll have sensation of blood rushing to her ears her upper full vision prasad blacking out. Acute transient encephalopathy: Rule out seizure especially with history of syncopal episode and transient presyncopal episodes Chronic lower back pain. Plan: Primary team ordered MRI of the brain without as well as routine EEG. I'll change the MRI to with and without seizure protocol 2-D echo was ordered and is pending I ordered the orthostatic vitals I'll hold off on any antiepileptic drugs on told the EEG comes back. If EEG is normal I would recommend a prolonged EEG as an outpatient to assess if the patient is a having any seizure discharge is not being picked up on the routine EEG. Placed on seizure precautions seizure pads I notified the patient that per [facility] because of her syncopal episodes in the last one was the end of September 2023, to avoid driving for 6 month until no further episodes, avoid heights, avoids swimming unassisted or using heavy machinery. Upon discharge recommend the patient to follow-up with a neurologist as an outpatient within 1-2 weeks We'll defer the rest of the medical measure the primary team The plan discussed with the patient and her nurse Thank you for the consultation Time with Patient: Greater than 30
--- NOTE | 2023-12-03 15:58 | CA ---
Transthoracic Echo Report Name: Doretha Guevara Age: 78 Gender: F : 1945 Exam Date: 12/03/2023 09:29 Exam Location: [place] Ht (in): 67 Wt (lb): 155 Ordering Physician: Delvin Servin MD Attending/Referring Phys: Regional Account Director Marylu Kirk RDCS Procedure CPT: Indications: ?? Thrombus Cardiac Hx: Technical Quality: Contrast 1: Total Dose (mL): Contrast 2: Total Dose (mL): MEASUREMENTS (Male / Female) Normal Values 2D ECHO LV Diastolic Diameter PLAX 4.3 cm 4.2 - 5.9 / 3.9 - 5.3 cm LV Systolic Diameter PLAX 2.8 cm IVS Diastolic Thickness 1.0 cm 0.6 - 1.0 / 0.6 - 0.9 cm LVPW Diastolic Thickness 0.7 cm 0.6 - 1.0 / 0.6 - 0.9 cm LV Relative Wall Thickness 0.4 LVOT Diameter 2.0 cm Aortic Root Diameter 3.3 cm LA Systolic Diameter LX 2.8 cm 3.0 - 4.0 / 2.7 - 3.8 cm DOPPLER AV Peak Velocity 130.5 cm/s AV Peak Gradient 6.8 mmHg AV Mean Velocity 93.3 cm/s AV Mean Gradient 3.8 mmHg AV Velocity Time Integral 26.7 cm LVOT Peak Velocity 116.2 cm/s LVOT Peak Gradient 5.4 mmHg LVOT Velocity Time Integral 24.9 cm LVOT Stroke Volume 79.0 cm??? LVOT Stroke Volume Index 43.5 ml/m??? AV Area Cont Eq vti 3.0 cm??? AV Area Cont Eq pk 2.8 cm??? Mitral E Point Velocity 65.3 cm/s Mitral A Point Velocity 57.8 cm/s Mitral E to A Ratio 1.1 MV Deceleration Time 204.1 ms MV E' Velocity 13.5 cm/s Mitral E to MV E' Ratio 4.8 PV Peak Velocity 65.1 cm/s PV Peak Gradient 1.7 mmHg FINDINGS Left Ventricle Left ventricular ejection fraction is estimated at 55-60 %. Normal left ventricular systolic function with no obvious regional wall motion abnormalities. Right Ventricle Normal right ventricular size. Unable to estimate the right ventricular systolic pressure. Right Atrium Normal right atrial size. Left Atrium Normal left atrial size. Mitral Valve Mild mitral regurgitation. Aortic Valve Trileaflet aortic valve. Tricuspid Valve Tricuspid valve not well visualized. Pulmonic Valve Trace to mild pulmonic regurgitation. Pericardium No pericardial effusion. Aorta Normal size aortic root. CONCLUSIONS Normal LV systolic function Technically difficult study Previewed by: Dr. Doc Camargo MD (Electronically Signed) Final Date: 03 December 2023 15:57
--- NOTE | 2023-12-03 16:59 | P.HPIM ---
History of Present Illness H&P Date: 12/03/23 HISTORY OF PRESENT ILLNESS: 78-year-old female known to my office patient well-known for a long time with past medical history of IBS, recurrent colitis, hyperlipidemia, mild depression, mild anxiety attacks and osteoarthritis. Her son called on 12/02/2019 for concern of significant mental status change with no explanation that family has been calling her with no response and found to be quite bit altered at the time. Was instructed to bring her to the emergency department at [facility]. Was seen and evaluated last night with other workup including CAT scan of the brain which shows no acute finding consistent with intracranial abnormality. Chest x-ray and EKG were normal, full laboratory workup including CBC CMP PT/INR UA serology for infection and toxicology with only finding of benzodiazepine and opiate found in her urine. Patient does take lorazepam for anxiety which she is not on any pain meds. Patient still quite a bit of alcohol was admitted to the hospital will be evaluated by neurology carotid ultrasound will be done continue front desk monitor for any major arrhythmia and we will see if patient need to have an MRI of the brain otherwise neuroexams every 2 hours at bedtime. Years ago patient needs to have presyncope and syncope repeatedly has been much better lately but continues to describe every so often mild lightheadedness depending on her IBS sometime when she is having quite a bit diarrhea with her IBS developed to have presyncope like symptoms last episode apparently was around the end of September 2023 with no documented seizure activity at any given time. Also blood pressure usually run very decent patient had mild orthostatic change every so often her blood pressure on admission was quite good hide this time. REVIEW OF SYSTEMS: CONSTITUTIONAL: Well-developed no acute respiratory distress. EYES: No icterus sclerae, no conjunctivitis. EARS, NOSE, MOUTH, THROAT, and FACE: No sore throat, lymphadenopathy, carotid bruits or deformity. RESPIRATORY: No SOB cough or wheezes. CARDIOVASCULAR: No CP, Palpitation, PND, Orthopnea, or angina. GASTROINTESTINAL: No Abd pain, Nausea or vomiting, no Diarrhea or constipation, No GI Bleed, no distention or masses. GENITOURINARY: Negative for Hematuria or UTI, no kidney stones. INTEGUMENT/BREAST: Negative for any muscular injury with mild osteoarthritis.. HEMATOLOGIC/LYMPHATIC: Negative for bleed or purpura. MUSCULOSKELTAL: Negative for Myalgia or arthralgia. NEURLOGICAL: No LOC, Sz or syncope, blurred vision dizziness or abnormality.. Positive visual hallucination and confusion. BEHAVIORAL/PSYCH: Negative. ENDOCRINE: Negative. PHYSICAL EXAMINATION: General Appearance: Alert, cooperative, no distress, appears stated age. Neck HEENT: Supple, no lymphadenopathy, no thyroid enlargement, no carotid bruits. Lungs: Clear to auscultation without crackles or wheezes no rhonchi, no deformity. Chest Wall: Chest wall normal expansion with deep inspiration no tenderness and no deformity was found on exam, no costochondral pain or discomfort. Heart: Regular rate and rhythm, S1, S2 normal, no murmur, rub or gallop. Back: Symmetric, no curvature, ROM normal, no CVA tenderness. Abdomen: Soft, non-tender, bowel sounds active all four quadrants, no masses, no organomegaly. Extremities: Extremities normal, atraumatic, no cyanosis or edema. Pulses: 2+ and symmetric. Skin: Skin color, texture, tugor normal, no rashes or lesions. Neurologic: Alert with slight confusion cranial nerves II through XII intact, no motor deficit, no abnormal balance or gait. Positive visual hallucination. ASSESSMENT AND PLAN: _Significant change mental status: Not a clear etiology whether this is medication reaction side effect or not not to be. Patient be seen by neurology we will take away any benzodiazepine antianxiety or any pain meds at this point watch patient carefully in the next 24 hours. Further testing including carotid ultrasound, front desk monitor, possible MRI of the brain and EEG as well. _Significant elevated blood pressure on admission she is not on any medication mild speculation on smaller dose of amlodipine 2.5 mg daily titrate dose higher. 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 _Chronic depression and mild anxiety: Was on Lexapro 10 mg a day and lorazepam on as-needed basis. _Chronic diarrhea, mostly IBS and colitis based has been on Questran and Lomotil on as-needed basis. The finding of her opiate in the urine can be from using Lomotil last couple days. _GI prophylaxis: Patient be started on Pepcid 20 mg daily. _DVT prophylaxis: Patient will have knee-high KARLOS hose early mobilization. CODE STATUS: Full code. Admit patient to the inpatient status for 1-2 nights. Past Medical History Past Medical History: No Reported History Additional Past Medical History / Comment(s): IBS, T2 T5 Fracture, EAS HOSPITALIZED 3 OR 4 YRS AGO IN [place] FOR COLITIS, INCREASED PRESSURE RT EYE-CURRENTLY STABLE WITH EYEDROPS History of Any Multi-Drug Resistant Organisms: None Reported Past Surgical History: Breast Surgery, Cholecystectomy, Hysterectomy, Tonsillectomy Additional Past Surgical History / Comment(s): breast biopsies, COLONOSCOPY Past Anesthesia/Blood Transfusion Reactions: Motion Sickness Additional Past Anesthesia/Blood Transfusion Reaction / Comment(s): "balance issue" Past Psychological History: Anxiety, Depression Smoking Status: Never smoker - Past Family History Mother Family Medical History: Coronary Artery Disease (CAD), Dementia, Myocardial Infarction ([place]) Additional Family Medical History / Comment(s): Mother at age 86 with previous history of myocardial infarction at age 67 requiring CABG. Patient's grandfather at age 60 from a myocardial infarction. Patient's uncle at age 46 from a myocardial infarction and that had been his third heart attack. Father Family Medical History: Dementia Additional Family Medical History / Comment(s): Father was healthy with no major medical problems. Brother(s) Family Medical History: Cancer Additional Family Medical History / Comment(s): Patient has 1 brother with history of prostate cancer. Patient does not have any sisters. Son(s) Additional Family Medical History / Comment(s): Patient has 2 sons and one was diagnosed with diabetes mellitus type 1 at age 26 and 1 son has irritable bowel syndrome. Daughter(s) Additional Family Medical History / Comment(s): Patient has one daughter with history of rheumatoid arthritis and polycystic ovarian disorder. Medications and Allergies Home Medications Medication Instructions Recorded Confirmed Type LORazepam [Ativan] 0.5 mg PO BID PRN 02/25/16 12/03/23 History Cholestyramine (with Sugar) 378 gm PO DAILY 12/09/22 12/03/23 History [Cholestyramine Powder] Escitalopram [Lexapro] 10 mg PO DAILY 12/09/22 12/03/23 History Latanoprost [Latanoprost 0.005%] 1 drop BOTH EYES HS PRN 12/09/22 12/03/23 History Baclofen [Lioresal] 10 mg PO TID PRN 12/03/23 12/03/23 History Estradiol Cream [Estrace Cream 1 gm VAGINAL SUWE 12/03/23 12/03/23 History 0.01%] Ibuprofen [Motrin Ib] 400 mg PO Q8H PRN 12/03/23 12/03/23 History Metoprolol Succinate (ER) [Toprol 12.5 mg PO HS 12/03/23 12/03/23 History XL] Pantoprazole [Protonix] 40 mg PO DAILY 12/03/23 12/03/23 History traMADol HCL 50 mg PO DIRECTED PRN 12/03/23 12/03/23 History Allergies Allergy/AdvReac Type Severity Reaction Status Date / Time Sulfa (Sulfonamide Allergy chills,naus Verified 12/03/23 13:01 Antibiotics) ea Physical Exam Vitals: Vital Signs Temp Pulse Resp BP Pulse Ox 12/03/23 06:50 65 16 12/03/23 04:50 97.4 F L 66 15 126/72 96 12/03/23 00:51 76 16 154/90 96 12/03/23 00:08 74 16 161/90 96 12/02/23 22:20 97.9 F 77 16 151/81 97 12/02/23 17:17 99.3 F 94 16 174/96 97 Intake and Output 12/02/23 12/02/23 12/03/23 14:59 22:59 06:59 Other: # Voids 1 Weight 70.307 kg Results CBC & Chem 7: 12/02/23 17:41 12/02/23 17:41 Labs: Abnormal Lab Results - Last 24 Hours (Table) 12/02/23 Range/Units 22:30 Urine Appearance Cloudy H (Clear) Urine Ketones 1+ H (Negative) Urine Blood Trace H (Negative) Urine WBC 12 H (0-5) /hpf Ur Squamous Epith Cells 5 H (0-4) /hpf Urine Bacteria Few H (None) /hpf Urine Mucus Rare H (None) /hpf Urine Opiates Screen Detected H (NotDetected) U Benzodiazepines Scrn Detected H (NotDetected)
[2023-12-03] MEDS: ACETAMINOPHEN TAB 325 MG TAB PO PRN (18:05)
[2023-12-03] MEDS: LATANOPROST 0.005% OPHTH DROPS 2.5 ML BTL RIGHT EYE SCH (20:11)
[2023-12-03] MEDS: KETOROLAC 15 MG/ML 1 ML VIAL IVP PRN (23:10)
[2023-12-04] MEDS: PANTOPRAZOLE 40 MG TABLET PO SCH (10:12)
--- NOTE | 2023-12-04 11:27 | P.PN ---
Subjective Progress Note Date: 12/04/23 I am following-up with patient and she feels about the same. No further neurological issues overnight or today. Objective - Vital Signs Vital signs: Vital Signs Temp 97.6 F 12/04/23 09:50 Pulse 76 12/04/23 09:50 Resp 16 12/04/23 09:50 BP 180/101 12/04/23 09:50 Pulse Ox 98 12/04/23 09:50 FiO2 Intake & Output 12/03/23 12/04/23 12/04/23 18:59 06:59 18:59 Intake Total 950 Balance 950 Intake: Intake, IV Titration 750 Amount Sodium Chloride 0.9% 1, 750 000 ml @ 50 mls/hr IV . Q20H ERICK Rx#:[id number] Oral 200 Other: # Voids 3 - Exam GENERAL: The patient is lying in bed and is not in acute distress. NEUROLOGICAL: Higher mental function: The patient is awake, alert, oriented to self, place and time. Patient is following commands. No aphasia and no neglect. Cranial nerves: The pupils are round, equal and reactive to light and accommodation. Visual prasad are full to confrontation throughout. Extraocular movement is intact no nystagmus is noted. Facial sensation is normal to touch throughout. The facial strength is normal throughout. Hearing is normal bilaterally to hand rub. Tongue is midline and moved [id number] without any difficulty. No dysarthria is noted. Shoulder shrug is normal bilaterally. Motor: The strength is 5 over 5 throughout. Normal tone and bulk. Cerebellum: Normal finger to nose bilaterally. Sensation: Sensation is normal to touch throughout. Reflexes (right/left): 2+ throughout. Plantars are downgoing bilaterally. Some of the work-up during this hospital visit consisted of: Recent orthostatic vitals: Is 180/101 with a heart rate of 76 and that supine, while sitting it's 172/100 with a heart rate of 80 and standing is 151/92 with a heart rate of 82. Patient is afebrile On initial presentation her blood pressure is 174/96. CBC with differential is unremarkable Chemistry panel is unremarkable Urinalysis does not An acute urinary tract infection. UDS: +opiates and Benzo. CT of the head is reported as no acute intracranial process. Nonspecific white matter changes, likely secondary due to chronic small vessel ischemic disease. I personally reviewed the CT and agree with the report. Carotid duplex: Is reported as no hemodynamically significant stenosis in either internal carotid artery. EKG: It is reported as sinus rhythm. Low QRS voltage. Possible right ventricular conduction the delay. Minimal ST depression. Borderline EKG. 2D echo: It is reported as normal left ventricular systolic function. - Labs CBC & Chem 7: 12/02/23 17:41 12/02/23 17:41 Assessment and Plan Assessment: This is a 78-year-old woman who presents because of confusion. She stated that this past Tuesday she was confused feeling off as well as recently she thought her parents were over her house even though they are for the past 10 years. She had a syncopal episode in the end of September 2023 as well as been having this intermittent presyncopal episodes and the last episode was 10-15 years ago in which she'll have sensation of blood rushing to her ears her upper full vision prasad blacking out. Acute transient encephalopathy: Rule out seizure especially with history of syncopal episode and transient presyncopal episodes Positive orthostatic hypotension. Chronic lower back pain. Plan: Pending MRI of the brain as well as routine EEG. I'll hold off on any antiepileptic drugs on told the EEG comes back. If EEG is normal I would recommend a prolonged EEG as an outpatient to assess if the patient is a having any seizure discharge is not being picked up on the routine EEG. Placed on seizure precautions seizure pads I notified the patient that per [facility] because of her syncopal episodes in the last one was the end of September 2023, to avoid driving for 6 month until no further episodes, avoid heights, avoids swimming unassisted or using heavy machinery. Patient has positive orthostatic hypotension on two different times. Will defer the management to the primary team. Upon discharge recommend the patient to follow-up with a neurologist as an outpatient within 1-2 weeks We'll defer the rest of the medical measure the primary team The plan discussed with the patient and her nurse Dr. Newman will resume neurology service tomorrow A.M. Time with Patient: Less than 30
--- NOTE | 2023-12-04 13:25 | P.PN ---
Subjective Progress Note Date: 12/04/23 HISTORY OF PRESENT ILLNESS: 78-year-old female known to my office patient well-known for a long time with past medical history of IBS, recurrent colitis, hyperlipidemia, mild depression, mild anxiety attacks and osteoarthritis. Her son called on 12/02/2019 for concern of significant mental status change with no explanation that family has been calling her with no response and found to be quite bit altered at the time. Was instructed to bring her to the emergency department at [facility]. Was seen and evaluated last night with other workup including CAT scan of the brain which shows no acute finding consistent with intracranial abnormality. Chest x-ray and EKG were normal, full laboratory workup including CBC CMP PT/INR UA serology for infection and toxicology with only finding of benzodiazepine and opiate found in her urine. Patient does take lorazepam for anxiety which she is not on any pain meds. Patient still quite a bit of alcohol was admitted to the hospital will be evaluated by neurology carotid ultrasound will be done continue quality assurance monitor final for any major arrhythmia and we will see if patient need to have an MRI of the brain otherwise neuroexams every 2 hours at bedtime. Years ago patient needs to have presyncope and syncope repeatedly has been much better lately but continues to describe every so often mild lightheadedness depending on her IBS sometime when she is having quite a bit diarrhea with her IBS developed to have presyncope like symptoms last episode apparently was around the end of September 2023 with no documented seizure activity at any given time. Also blood pressure usually run very decent patient had mild orthostatic change every so often her blood pressure on admission was quite good hide this time. 12/04/2023: She is doing slightly better today no further visual hallucination her memory is much better mentation are close to normal not totally still having slight lightheadedness and dizziness when attempting to stand up or get up fast and she is having significant orthostatic hypotension might be using some midodrine to have low blood pressure even her blood pressure slightly bit up early but she is having low blood pressure we will take her off amlodipine completely. Awaiting for MRI and EEG will finalize medication removal patient slowly. REVIEW OF SYSTEMS: CONSTITUTIONAL: Well-developed no acute respiratory distress. EYES: No icterus sclerae, no conjunctivitis. EARS, NOSE, MOUTH, THROAT, and FACE: No sore throat, lymphadenopathy, carotid bruits or deformity. RESPIRATORY: No SOB cough or wheezes. CARDIOVASCULAR: No CP, Palpitation, PND, Orthopnea, or angina. GASTROINTESTINAL: No Abd pain, Nausea or vomiting, no Diarrhea or constipation, No GI Bleed, no distention or masses. GENITOURINARY: Negative for Hematuria or UTI, no kidney stones. INTEGUMENT/BREAST: Negative for any muscular injury with mild osteoarthritis.. HEMATOLOGIC/LYMPHATIC: Negative for bleed or purpura. MUSCULOSKELTAL: Negative for Myalgia or arthralgia. NEURLOGICAL: No LOC, Sz or syncope, blurred vision dizziness or abnormality.. Positive visual hallucination and confusion. BEHAVIORAL/PSYCH: Negative. ENDOCRINE: Negative. PHYSICAL EXAMINATION: General Appearance: Alert, cooperative, no distress, appears stated age. Neck HEENT: Supple, no lymphadenopathy, no thyroid enlargement, no carotid bruits. Lungs: Clear to auscultation without crackles or wheezes no rhonchi, no deformity. Chest Wall: Chest wall normal expansion with deep inspiration no tenderness and no deformity was found on exam, no costochondral pain or discomfort. Heart: Regular rate and rhythm, S1, S2 normal, no murmur, rub or gallop. Back: Symmetric, no curvature, ROM normal, no CVA tenderness. Abdomen: Soft, non-tender, bowel sounds active all four quadrants, no masses, no organomegaly. Extremities: Extremities normal, atraumatic, no cyanosis or edema. Pulses: 2+ and symmetric. Skin: Skin color, texture, tugor normal, no rashes or lesions. Neurologic: Alert with slight confusion cranial nerves II through XII intact, no motor deficit, no abnormal balance or gait. Positive visual hallucination. ASSESSMENT AND PLAN: _Significant change mental status: Still doing workup at this point patient is not totally clear her CAT scan was negative echo and carotid did not show any abnormality blood pressure has been dropping down when standing patient up with significant orthostatic change will use midodrine for it. _Orthostatic hypotension, will use midodrine continue hydration watch symptoms carefully. 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 _Chronic depression and mild anxiety: Was on Lexapro 10 mg a day and lorazepam on as-needed basis. _Chronic diarrhea, mostly IBS and colitis based has been on Questran and Lomotil on as-needed basis. The finding of her opiate in the urine can be from using Lomotil last couple days. _Significant reaction to medication including her Ativan and? Of any pain meds which patient does not disclose anything that she takes specially Opium. Has been cleared at this point. _Possible seizure: EEG to be done tomorrow based on the results we will decide whether she can benefit from antiseizure medication or not. _GI prophylaxis: Patient be started on Pepcid 20 mg daily. _DVT prophylaxis: Patient will have knee-high KARLOS hose early mobilization. CODE STATUS: Full code. Discharge planning: Patient to be hopefully discharged tomorrow to complete her testing. Objective - Vital Signs Vital signs: Vital Signs Temp 97.3 F L 12/04/23 02:00 Pulse 64 12/04/23 02:00 Resp 16 12/04/23 02:00 BP 145/88 12/04/23 05:50 Pulse Ox 97 12/04/23 02:00 FiO2 Intake & Output 12/03/23 12/04/23 12/04/23 18:59 06:59 18:59 Intake Total 950 Balance 950 Intake: Intake, IV Titration 750 Amount Sodium Chloride 0.9% 1, 750 000 ml @ 50 mls/hr IV . Q20H ERICK Rx#:[id number] Oral 200 Other: # Voids 3 - Labs CBC & Chem 7: 12/02/23 17:41 12/02/23 17:41
[2023-12-04] MEDS: amLODIPine 2.5 MG TAB PO SCH (13:56)
[2023-12-04] MEDS: MIDODRINE 5 MG TAB PO ONE (14:55)
[2023-12-04] MEDS: MIDODRINE 5 MG TAB PO SCH (17:53)
[2023-12-04] MEDS: METOPROLOL SUCCINATE (ER) 25 MG TAB.ER.24H PO SCH (17:56)
--- NOTE | 2023-12-05 11:17 | P.CRDCN ---
History of Present Illness Consult date: 12/05/23 Reason for Consult (text): Orthostatic and questionable second-degree block History of present illness: History of present illness: This is a 78-year-old female with past medical history of IBS, hyperlipidemia, depression, anxiety, osteoarthritis. Patient denies any previous history of cardiac disease with no previous cardiac workup. Patient currently denies having any chest pain, shortness of breath. Patient presented to the [facility] to mental status changes which she mentions. We have been asked to evaluate patient for possible second-degree heart block. EKG and telemetry reviewed sinus rhythm with first-degree block with 1 telemetry noting a send jerrod block and nonconducted PAC Chest x-ray: No acute process. COPD changes. CT of the brain: No acute intracranial process. Carotid duplex study revealed no hemodynamically significant stenosis in either internal carotid artery. Echocardiogram reveals normal LV function technically difficult study. CBC within normal limits. INR 0.9. All electrolytes renal function, liver function test within normal limits. Troponin negative x 1. Ammonia level less than 9. Urine drug screen positive for opiates and benzodiazepines. Influenza A, influenza B, RSV, COVID-19 not detected. Urinalysis revealed WBC 12, blood trace, 1+ ketones. Home cardiac medications: Toprol XL 12.5 mg at bedtime Review Of Systems: At the time of my exam: CONSTITUTIONAL: Denies fever or chills. HEENT: Denies blurred vision, vision changes, or eye pain. Denies hemoptysis CARDIOVASCULAR: Denies chest pain. Denies orthopnea. Denies PND. Denies palpitations RESPIRATORY: Denies shortness of breath. GASTROINTESTINAL: Denies abdominal pain. Denies nausea or vomiting. HEMATOLOGIC: Denies bleeding disorders. GENITOURINARY: Denies any blood in urine. SKIN: Denies pruitis. Denies rash. Physical examination: Gen: This is a 78-year-old female in no acute distress VS: reviewed HEENT: Head is atraumatic, normocephalic. Pupils equal, round. Sclerae is anicteric. NECK: Supple. No JVD. LUNGS: Clear to auscultation. No wheezes or rhonchi. No intercostal retractions. HEART: Regular rate and rhythm. No murmur. ABDOMEN: Soft No tenderness. EXTREMITIES: No pedal edema. No calf tenderness. NEUROLOGICAL: Patient is awake, alert and oriented x3. 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 Nurse practitioner note has been reviewed, I agree with documented findings and plan of care. Patient was seen and examined. Past Medical History Past Medical History: No Reported History Additional Past Medical History / Comment(s): IBS, T2 T5 Fracture, EAS HOSPITALIZED 3 OR 4 YRS AGO IN [place] FOR COLITIS, INCREASED PRESSURE RT EYE- CURRENTLY STABLE WITH EYEDROPS History of Any Multi-Drug Resistant Organisms: None Reported Past Surgical History: Breast Surgery, Cholecystectomy, Hysterectomy, Tonsillectomy Additional Past Surgical History / Comment(s): breast biopsies, COLONOSCOPY Past Anesthesia/Blood Transfusion Reactions: Motion Sickness Additional Past Anesthesia/Blood Transfusion Reaction / Comment(s): "balance issue" Past Psychological History: Anxiety, Depression Smoking Status: Never smoker - Past Family History Mother Family Medical History: Coronary Artery Disease (CAD), Dementia, Myocardial Infarction (OR) Additional Family Medical History / Comment(s): Mother at age 86 with previous history of myocardial infarction at age 67 requiring CABG. Patient's grandfather at age 60 from a myocardial infarction. Patient's uncle at age 46 from a myocardial infarction and that had been his third heart attack. Father Family Medical History: Dementia Additional Family Medical History / Comment(s): Father was healthy with no major medical problems. Brother(s) Family Medical History: Cancer Additional Family Medical History / Comment(s): Patient has 1 brother with history of prostate cancer. Patient does not have any sisters. Son(s) Additional Family Medical History / Comment(s): Patient has 2 sons and one was diagnosed with diabetes mellitus type 1 at age 26 and 1 son has irritable bowel syndrome. Daughter(s) Additional Family Medical History / Comment(s): Patient has one daughter with history of rheumatoid arthritis and polycystic ovarian disorder. Medications and Allergies Home Medications Medication Instructions Recorded Confirmed Type LORazepam [Ativan] 0.5 mg PO BID PRN 02/25/16 12/03/23 History Cholestyramine (with Sugar) 378 gm PO DAILY 12/09/22 12/03/23 History [Cholestyramine Powder] Escitalopram [Lexapro] 10 mg PO DAILY 12/09/22 12/03/23 History Latanoprost [Latanoprost 0.005%] 1 drop BOTH EYES HS PRN 12/09/22 12/03/23 History Baclofen [Lioresal] 10 mg PO TID PRN 12/03/23 12/03/23 History Estradiol Cream [Estrace Cream 1 gm VAGINAL SUWE 12/03/23 12/03/23 History 0.01%] Ibuprofen [Motrin Ib] 400 mg PO Q8H PRN 12/03/23 12/03/23 History Metoprolol Succinate (ER) [Toprol 12.5 mg PO HS 12/03/23 12/03/23 History XL] Pantoprazole [Protonix] 40 mg PO DAILY 12/03/23 12/03/23 History traMADol HCL 50 mg PO DIRECTED PRN 12/03/23 12/03/23 History Allergies Allergy/AdvReac Type Severity Reaction Status Date / Time Sulfa (Sulfonamide Allergy chills,naus Verified 12/03/23 13:01 Antibiotics) ea Physical Exam Vitals: Vital Signs Temp Pulse Pulse Pulse Pulse Pulse Resp 12/05/23 07:00 98.0 F 80 98 88 17 12/05/23 02:23 97.8 F 70 15 12/04/23 19:18 97.5 F L 78 16 12/04/23 17:21 98.7 F 84 87 87 15 12/04/23 17:05 84 18 12/04/23 15:39 76 18 12/04/23 14:53 75 18 12/04/23 12:45 83 83 80 16 12/04/23 09:50 97.6 F 80 82 76 16 12/04/23 09:45 16 BP BP BP BP BP BP BP 12/05/23 07:00 163/86 118/77 170/95 12/05/23 02:23 12/04/23 19:18 159/85 12/04/23 17:21 194/98 153/98 189/96 12/04/23 17:05 187/96 12/04/23 15:39 180/97 12/04/23 14:53 173/93 12/04/23 12:45 168/97 135/82 164/94 12/04/23 09:50 172/100 151/92 180/101 12/04/23 09:45 BP Pulse Ox 12/05/23 07:00 94 L 12/05/23 02:23 173/89 95 12/04/23 19:18 96 12/04/23 17:21 95 12/04/23 17:05 99 12/04/23 15:39 98 12/04/23 14:53 98 12/04/23 12:45 96 12/04/23 09:50 98 12/04/23 09:45 Intake and Output 12/04/23 12/05/23 12/05/23 22:59 06:59 14:59 Other: Voiding Method Toilet # Voids 2 Results 12/02/23 17:41 12/02/23 17:41 Current Medications Generic Name Dose Route Start Last Admin Trade Name Freq PRN Reason Stop Dose Admin Acetaminophen 650 mg 12/02/23 23:52 12/04/23 15:45 Acetaminophen Tab 325 Mg Tab PO 650 mg Q6HR PRN Administration Mild Pain or Fever > 100.5 Cholestyramine Resin 4 gm 12/03/23 09:00 12/04/23 10:12 Cholestyramine (With Sugar) 4 Gm Packet PO 4 gm DAILY ERICK Administration Escitalopram Oxalate 10 mg 12/03/23 09:00 12/04/23 10:12 Escitalopram 10 Mg Tab PO 10 mg DAILY ERICK Administration Famotidine 20 mg 12/03/23 09:00 12/04/23 10:12 Famotidine 20 Mg Tab PO 20 mg DAILY ERICK Administration Sodium Chloride 1,000 mls @ 50 mls/hr 12/02/23 23:45 12/04/23 15:54 Saline 0.9% IV 50 mls/hr .Q20H ERICK Administration Ibuprofen 400 mg 12/04/23 07:23 Ibuprofen 400 Mg Tab PO Q8H PRN Pain or Fever > 100.5 Ketorolac Tromethamine 15 mg 12/02/23 23:52 12/04/23 22:11 Ketorolac 15 Mg/Ml 1 Ml Vial IVP 12/05/23 23:53 15 mg Q6HR PRN Administration Moderate Pain (Scale 4 to 6) Lactobacillus Acidophilus 1 each 12/03/23 09:00 12/04/23 10:12 Lactobacillus Acidophilus/Pect 1 Each Capsule PO 1 each DAILY ERICK Administration Latanoprost 1 drops 12/03/23 21:00 12/04/23 20:40 Latanoprost 0.005% Ophth Drops 2.5 Ml Btl RIGHT EYE Not Given HS EIRCK Metoprolol Succinate 12.5 mg 12/04/23 21:00 12/04/23 17:56 Metoprolol Succinate (Er) 25 Mg Tab.Er.24h PO 12.5 mg HS ERICK Administration Midodrine 2.5 mg 12/04/23 17:30 12/05/23 06:23 Midodrine 5 Mg Tab PO Not Given AC-BID ERICK Naloxone HCl 0.2 mg 12/02/23 23:52 Naloxone 0.4 Mg/Ml 1 Ml Vial IV Q2M PRN Opioid Reversal Pantoprazole Sodium 40 mg 12/04/23 07:30 12/05/23 06:30 Pantoprazole 40 Mg Tablet PO 40 mg [id number] ERICK Administration Intake and Output 12/04/23 12/05/23 12/05/23 22:59 06:59 14:59 Other: Voiding Method Toilet # Voids 2 12/02/23 17:41 12/02/23 17:41
--- NOTE | 2023-12-05 15:20 | MR ---
EXAMINATION TYPE: MR brain wo/w con DATE OF EXAM: 12/05/2023 2:01 PM COMPARISON: NONE HISTORY: Confusion, visual hallucinations, seizure. CONTRAST: Patient received 7.5 mL intravenous Gadavist gadolinium contrast. Multiplanar and multispin-echo imaging of the brain was performed . Pre and post contrast enhanced i mages are obtained. The ventricles, basal cisterns and sulci overlying the cerebral convexities are mildly enlarged. There is evidence of mild periventricular white matter ischemic demyelination. Remote deep white matter insults are also noted. No acute edema is seen on diffusion weighted imaging. There is no evidence for midline shift or mass effect. Acute intracranial hemorrhage or extra-axial collection is not evident. No enhancing lesions are seen. The paranasal sinuses and mastoid air cells are well-aerated. IMPRESSION: Age-related atrophic and chronic small vessel ischemic change. No acute intracranial process at this time. No enhancing lesions are seen.
[2023-12-05] MEDS: IBUPROFEN 400 MG TAB PO PRN (17:51)
--- NOTE | 2023-12-05 18:44 | P.DS ---
Providers Date of admission: 12/03/23 03:29 HISTORY OF PRESENT ILLNESS: 78-year-old female known to my office patient well-known for a long time with past medical history of IBS, recurrent colitis, hyperlipidemia, mild depression, mild anxiety attacks and osteoarthritis. Her son called on 12/02/2019 for concern of significant mental status change with no explanation that family has been calling her with no response and found to be quite bit altered at the time. Was instructed to bring her to the emergency department at [facility]. Was seen and evaluated last night with other workup including CAT scan of the brain which shows no acute finding consistent with intracranial abnormality. Chest x-ray and EKG were normal, full laboratory workup including CBC CMP PT/INR UA serology for infection and toxicology with only finding of benzodiazepine and opiate found in her urine. Patient does take lorazepam for anxiety which she is not on any pain meds. 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 Years ago patient needs to have presyncope and syncope repeatedly has been much better lately but continues to describe every so often mild lightheadedness depending on her IBS sometime when she is having quite a bit diarrhea with her IBS developed to have presyncope like symptoms last episode apparently was around the end of September 2023 with no documented seizure activity at any given time. Also blood pressure usually run very decent patient had mild orthostatic change every so often her blood pressure on admission was quite good hide this time. 12/04/2023: She is doing slightly better today no further visual hallucination her memory is much better mentation are close to normal not totally still having slight lightheadedness and dizziness when attempting to stand up or get up fast and she is having significant orthostatic hypotension might be using some midodrine to have low blood pressure even her blood pressure slightly bit up early but she is having low blood pressure we will take her off amlodipine completely. Awaiting for MRI and EEG will finalize medication removal patient slowly. 12/05/2023: Patient had an MRI which showed small vessel disease but no other abnormality, EEG was quite abnormal in the left temporal area and left slight note for neurology to do noised induction EEG to see if truthfully patient have any seizure. Such thing can be arranged as an outpatient but will share the results with the son at least to see if he wants to do it out of town all with one of the neurology clinic in town. 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 Cardiology brought on board check the EKG check the heart monitor and decide to take her off her metoprolol at this point plan to check her thyroid to be done tomorrow morning. By the time we have all the results ready was little bit late in the day the patient blood pressure fluctuating point she did not feel Stable to go home was kept in the hospital overnight till tomorrow 12-06-2023. Despite blood pressure still fluctuating up maybe will be safe for patient to be on the smaller dose of amlodipine but had significant fluctuation with orthostatic change still doing midodrine which should be probably stop completely at this point. Patient will follow-up in short period time in the office. REVIEW OF SYSTEMS: CONSTITUTIONAL: Well-developed no acute respiratory distress. EYES: No icterus sclerae, no conjunctivitis. EARS, NOSE, MOUTH, THROAT, and FACE: No sore throat, lymphadenopathy, carotid bruits or deformity. RESPIRATORY: No SOB cough or wheezes. CARDIOVASCULAR: No CP, Palpitation, PND, Orthopnea, or angina. GASTROINTESTINAL: No Abd pain, Nausea or vomiting, no Diarrhea or constipation, No GI Bleed, no distention or masses. GENITOURINARY: Negative for Hematuria or UTI, no kidney stones. INTEGUMENT/BREAST: Negative for any muscular injury with mild osteoarthritis.. HEMATOLOGIC/LYMPHATIC: Negative for bleed or purpura. MUSCULOSKELTAL: Negative for Myalgia or arthralgia. NEURLOGICAL: No LOC, Sz or syncope, blurred vision dizziness or abnormality.. Positive visual hallucination and confusion. BEHAVIORAL/PSYCH: Negative. ENDOCRINE: Negative. PHYSICAL EXAMINATION: General Appearance: Alert, cooperative, no distress, appears stated age. Neck HEENT: Supple, no lymphadenopathy, no thyroid enlargement, no carotid bruits. Lungs: Clear to auscultation without crackles or wheezes no rhonchi, no deformity. Chest Wall: Chest wall normal expansion with deep inspiration no tenderness and no deformity was found on exam, no costochondral pain or discomfort. Heart: Regular rate and rhythm, S1, S2 normal, no murmur, rub or gallop. Back: Symmetric, no curvature, ROM normal, no CVA tenderness. Abdomen: Soft, non-tender, bowel sounds active all four quadrants, no masses, no organomegaly. Extremities: Extremities normal, atraumatic, no cyanosis or edema. Pulses: 2+ and symmetric. Skin: Skin color, texture, tugor normal, no rashes or lesions. Neurologic: Alert with slight confusion cranial nerves II through XII intact, no motor deficit, no abnormal balance or gait. Positive visual hallucination. ASSESSMENT AND PLAN: _Significant change mental status: Entire workup did not show any major abnormality with exception of? Of seizure should be study and tested we will run this by neurology to see if it is worth having patient on antiseizure medication until it is confirmed. _Orthostatic hypotension, being off metoprolol patient ended up having significant hypertension which will stop midodrine at this point we will put her back on amlodipine 2.5 mg use the second 1 if systolic blood pressures above 150. 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 _Chronic depression and mild anxiety: Was on Lexapro 10 mg a day and lorazepam on as-needed basis. _Chronic diarrhea, mostly IBS and colitis based has been on Questran and Lomotil on as-needed basis. We will hold Lomotil completely to lower the side effect of medication. _Significant reaction to medication including her Ativan and? Of any pain meds which patient does not disclose anything that she takes specially Opium. Has been cleared at this point. _Possible seizure: EEG to be done tomorrow based on the results we will decide whether she can benefit from antiseizure medication or not. _GI prophylaxis: Patient be started on Pepcid 20 mg daily. _DVT prophylaxis: Patient will have knee-high KARLOS hose early mobilization. CODE STATUS: Full code. Hospital course: on 12/06/2023 Patient is feeling much better she will be going home to stay with a friend for the next week to 10 days blood pressure will be measured on more regular basis, will arrange for home care at this point patient to be seen in the office in 2 days in the next week to try to adjust her medication to keep the blood pressure well-controlled without having any significant change. Her EEG shows slight abnormality with possible seizure we will run it by neurology for potential antiseizure medication. So what happened probably was related to encephalopathy and mild encephalopathy postseizure activity for the day she was admitted on. She will be discharged home today to follow-up as an outpatient in the next 2 days. Time spent on discharging patient was over 40 minutes. Attending physician: Delvin Servin Consults: 12/03/23 06:55 Consult Physician Routine Consulting Provider: Arjun James Consult Reason/Comments: altered MS Do you want consulting provider notified?: Yes 12/05/23 08:35 Consult Physician Routine Consulting Provider: Doc Camargo Consult Reason/Comments: Orhtostatic and ?? second degree block Do you want consulting provider notified?: Yes Primary care physician: [facility] Course: HISTORY OF PRESENT ILLNESS: 78-year-old female known to my office patient well-known for a long time with past medical history of IBS, recurrent colitis, hyperlipidemia, mild depression, mild anxiety attacks and osteoarthritis. Her son called on 12/02/2019 for concern of significant mental status change with no explanation that family has been calling her with no response and found to be quite bit altered at the time. Was instructed to bring her to the emergency department at [facility]. Was seen and evaluated last night with other workup including CAT scan of the brain which shows no acute finding consistent with intracranial abnormality. Chest x-ray and EKG were normal, full laboratory workup including CBC CMP PT/INR UA serology for infection and toxicology with only finding of benzodiazepine and opiate found in her urine. Patient does take lorazepam for anxiety which she is not on any pain meds. 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 Years ago patient needs to have presyncope and syncope repeatedly has been much better lately but continues to describe every so often mild lightheadedness depending on her IBS sometime when she is having quite a bit diarrhea with her IBS developed to have presyncope like symptoms last episode apparently was around the end of September 2023 with no documented seizure activity at any given time. Also blood pressure usually run very decent patient had mild orthostatic change every so often her blood pressure on admission was quite good hide this time. 12/04/2023: She is doing slightly better today no further visual hallucination her memory is much better mentation are close to normal not totally still having slight lightheadedness and dizziness when attempting to stand up or get up fast and she is having significant orthostatic hypotension might be using some midodrine to have low blood pressure even her blood pressure slightly bit up early but she is having low blood pressure we will take her off amlodipine completely. Awaiting for MRI and EEG will finalize medication removal patient slowly. REVIEW OF SYSTEMS: CONSTITUTIONAL: Well-developed no acute respiratory distress. EYES: No icterus sclerae, no conjunctivitis. EARS, NOSE, MOUTH, THROAT, and FACE: No sore throat, lymphadenopathy, carotid bruits or deformity. RESPIRATORY: No SOB cough or wheezes. CARDIOVASCULAR: No CP, Palpitation, PND, Orthopnea, or angina. GASTROINTESTINAL: No Abd pain, Nausea or vomiting, no Diarrhea or constipation, No GI Bleed, no distention or masses. GENITOURINARY: Negative for Hematuria or UTI, no kidney stones. INTEGUMENT/BREAST: Negative for any muscular injury with mild osteoarthritis.. HEMATOLOGIC/LYMPHATIC: Negative for bleed or purpura. MUSCULOSKELTAL: Negative for Myalgia or arthralgia. NEURLOGICAL: No LOC, Sz or syncope, blurred vision dizziness or abnormality.. Positive visual hallucination and confusion. BEHAVIORAL/PSYCH: Negative. ENDOCRINE: Negative. PHYSICAL EXAMINATION: General Appearance: Alert, cooperative, no distress, appears stated age. Neck HEENT: Supple, no lymphadenopathy, no thyroid enlargement, no carotid bruits. Lungs: Clear to auscultation without crackles or wheezes no rhonchi, no deformity. Chest Wall: Chest wall normal expansion with deep inspiration no tenderness and no deformity was found on exam, no costochondral pain or discomfort. Heart: Regular rate and rhythm, S1, S2 normal, no murmur, rub or gallop. Back: Symmetric, no curvature, ROM normal, no CVA tenderness. Abdomen: Soft, non-tender, bowel sounds active all four quadrants, no masses, no organomegaly. Extremities: Extremities normal, atraumatic, no cyanosis or edema. Pulses: 2+ and symmetric. Skin: Skin color, texture, tugor normal, no rashes or lesions. Neurologic: Alert with slight confusion cranial nerves II through XII intact, no motor deficit, no abnormal balance or gait. Positive visual hallucination. ASSESSMENT AND PLAN: _Significant change mental status: Still doing workup at this point patient is not totally clear her CAT scan was negative echo and carotid did not show any abnormality blood pressure has been dropping down when standing patient up with significant orthostatic change will use midodrine for it. _Orthostatic hypotension, will use midodrine continue hydration watch symptoms carefully. 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 _Chronic depression and mild anxiety: Was on Lexapro 10 mg a day and lorazepam on as-needed basis. _Chronic diarrhea, mostly IBS and colitis based has been on Questran and Lomotil on as-needed basis. The finding of her opiate in the urine can be from using Lomotil last couple days. _Significant reaction to medication including her Ativan and? Of any pain meds which patient does not disclose anything that she takes specially Opium. Has been cleared at this point. _Possible seizure: EEG to be done tomorrow based on the results we will decide whether she can benefit from antiseizure medication or not. _GI prophylaxis: Patient be started on Pepcid 20 mg daily. _DVT prophylaxis: Patient will have knee-high KARLOS hose early mobilization. CODE STATUS: Full code. Patient Condition at Discharge: Good Plan - Discharge Summary Discharge Rx Participant: No New Discharge Prescriptions: New amLODIPine [Norvasc] 2.5 mg PO BID #60 tab Continue Estradiol Cream [Estrace Cream 0.01%] 1 gm VAGINAL SUWE Escitalopram [Lexapro] 10 mg PO DAILY Latanoprost [Latanoprost 0.005%] 1 drop BOTH EYES HS PRN PRN Reason: eye pressure Cholestyramine (with Sugar) [Cholestyramine Powder] 378 gm PO DAILY Ibuprofen [Motrin Ib] 400 mg PO Q8H PRN PRN Reason: Pain Or Fever > 100.5 Pantoprazole [Protonix] 40 mg PO DAILY Changed Baclofen [Lioresal] 5 mg PO TID PRN #0 PRN Reason: Muscle Pain Discontinued LORazepam [Ativan] 0.5 mg PO BID PRN PRN Reason: anxiety/sleep Metoprolol Succinate (ER) [Toprol XL] 12.5 mg PO HS traMADol HCL 50 mg PO DIRECTED PRN PRN Reason: Pain Discharge Medication List Cholestyramine (with Sugar) [Cholestyramine Powder] 378 gm PO DAILY 12/09/22 [History] Escitalopram [Lexapro] 10 mg PO DAILY 12/09/22 [History] Latanoprost [Latanoprost 0.005%] 1 drop BOTH EYES HS PRN 12/09/22 [History] Estradiol Cream [Estrace Cream 0.01%] 1 gm VAGINAL SUWE 12/03/23 [History] Ibuprofen [Motrin Ib] 400 mg PO Q8H PRN 12/03/23 [History] Pantoprazole [Protonix] 40 mg PO DAILY 12/03/23 [History] Baclofen [Lioresal] 5 mg PO TID PRN #0 12/06/23 [Rx] amLODIPine [Norvasc] 2.5 mg PO BID #60 tab 12/06/23 [Rx] Follow up Appointment(s)/Referral(s): Doc Camargo MD [STAFF PHYSICIAN] - 1 Week (Office will call with appoinmtment time and date.) Delvin Servin MD [Primary Care Provider] - 1-2 days Brennan Black MD [STAFF PHYSICIAN] - 1 Week Patient Instructions/Handouts: Acute Delirium (DC), Hallucinations (DC) Discharge Disposition: HOME SELF-CARE
--- NOTE | 2023-12-06 00:56 | EEG ---
DATE OF SERVICE: 12/05/2023 ELECTROENCEPHALOGRAM REPORT PREAMBLE: This is a 78-year-old female who has presented with confusion and visual hallucinations. In the end of September, she had a syncopal episode as well. CURRENT MEDICATIONS: Questran, Lexapro, Motrin, Toradol, Toprol, Protonix, and ProAmatine. EEG FINDINGS: This is a 21-channel digital EEG recorded with video component, utilizing 10/20 international system with referential and bipolar montages. Background consists of well developed, well regulated moderate voltage activity in 8 hertz alpha. Background is posterior dominant and reactive to eye opening and closing. Photic driving response was not clearly seen. Some sporadic left temporal sharp appearing waves were seen, with occasional dysrhythmic activity in the left temporal region. Different stages of sleep were not seen. EKG channel showed no obvious arrhythmia. IMPRESSION: This is a mildly abnormal EEG due to intermittent dysrhythmic slowing in the left temporal region with rare sharply controlled waves. This suggestive of focal cortical neuronal dysfunction. The sharp waves were not clearly epileptiform. If your suspicion for seizures is high, suggest prolonged, sleep-deprived EEG. Clinical correlation is strongly recommended. MMODL / IJN: [id number] / [id number]
--- NOTE | 2023-12-06 03:10 | P.PN ---
Subjective Progress Note Date: 12/05/23 HISTORY OF PRESENT ILLNESS: 78-year-old female known to my office patient well-known for a long time with past medical history of IBS, recurrent colitis, hyperlipidemia, mild depression, mild anxiety attacks and osteoarthritis. Her son called on 12/02/2019 for concern of significant mental status change with no explanation that family has been calling her with no response and found to be quite bit altered at the time. Was instructed to bring her to the emergency department at [facility]. Was seen and evaluated last night with other workup including CAT scan of the brain which shows no acute finding consistent with intracranial abnormality. Chest x-ray and EKG were normal, full laboratory workup including CBC CMP PT/INR UA serology for infection and toxicology with only finding of benzodiazepine and opiate found in her urine. Patient does take lorazepam for anxiety which she is not on any pain meds. Patient still quite a bit of alcohol was admitted to the hospital will be evaluated by neurology carotid ultrasound will be done continue night monitor for any major arrhythmia and we will see if patient need to have an MRI of the brain otherwise neuroexams every 2 hours at bedtime. Years ago patient needs to have presyncope and syncope repeatedly has been much better lately but continues to describe every so often mild lightheadedness depending on her IBS sometime when she is having quite a bit diarrhea with her IBS developed to have presyncope like symptoms last episode apparently was around the end of September 2023 with no documented seizure activity at any given time. Also blood pressure usually run very decent patient had mild orthostatic change every so often her blood pressure on admission was quite good hide this time. 12/04/2023: She is doing slightly better today no further visual hallucination her memory is much better mentation are close to normal not totally still having slight lightheadedness and dizziness when attempting to stand up or get up fast and she is having significant orthostatic hypotension might be using some midodrine to have low blood pressure even her blood pressure slightly bit up early but she is having low blood pressure we will take her off amlodipine completely. Awaiting for MRI and EEG will finalize medication removal patient slowly. 12/05/2023: Patient had an MRI which showed small vessel disease but no other abnormality, EEG was quite abnormal in the left temporal area and left slight note for neurology to do noised induction EEG to see if truthfully patient have any seizure. Such thing can be arranged as an outpatient but will share the results with the son at least to see if he wants to do it out of town all with one of the neurology clinic in town. 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 Cardiology brought on board check the EKG check the heart monitor and decide to take her off her metoprolol at this point plan to check her thyroid to be done tomorrow morning. By the time we have all the results ready was little bit late in the day the patient blood pressure fluctuating point she did not feel Stable to go home was kept in the hospital overnight till tomorrow 12-06-2023. Despite blood pressure still fluctuating up maybe will be safe for patient to be on the smaller dose of amlodipine but had significant fluctuation with orthostatic change still doing midodrine which should be probably stop completely at this point. Patient will follow-up in short period time in the office. REVIEW OF SYSTEMS: CONSTITUTIONAL: Well-developed no acute respiratory distress. EYES: No icterus sclerae, no conjunctivitis. EARS, NOSE, MOUTH, THROAT, and FACE: No sore throat, lymphadenopathy, carotid bruits or deformity. RESPIRATORY: No SOB cough or wheezes. CARDIOVASCULAR: No CP, Palpitation, PND, Orthopnea, or angina. GASTROINTESTINAL: No Abd pain, Nausea or vomiting, no Diarrhea or constipation, No GI Bleed, no distention or masses. GENITOURINARY: Negative for Hematuria or UTI, no kidney stones. INTEGUMENT/BREAST: Negative for any muscular injury with mild osteoarthritis.. HEMATOLOGIC/LYMPHATIC: Negative for bleed or purpura. MUSCULOSKELTAL: Negative for Myalgia or arthralgia. NEURLOGICAL: No LOC, Sz or syncope, blurred vision dizziness or abnormality.. Positive visual hallucination and confusion. BEHAVIORAL/PSYCH: Negative. ENDOCRINE: Negative. PHYSICAL EXAMINATION: General Appearance: Alert, cooperative, no distress, appears stated age. Neck HEENT: Supple, no lymphadenopathy, no thyroid enlargement, no carotid bruits. Lungs: Clear to auscultation without crackles or wheezes no rhonchi, no def ormity. Chest Wall: Chest wall normal expansion with deep inspiration no tenderness and no deformity was found on exam, no costochondral pain or discomfort. Heart: Regular rate and rhythm, S1, S2 normal, no murmur, rub or gallop. Back: Symmetric, no curvature, ROM normal, no CVA tenderness. Abdomen: Soft, non-tender, bowel sounds active all four quadrants, no masses, no organomegaly. Extremities: Extremities normal, atraumatic, no cyanosis or edema. Pulses: 2+ and symmetric. Skin: Skin color, texture, tugor normal, no rashes or lesions. Neurologic: Alert with slight confusion cranial nerves II through XII intact, no motor deficit, no abnormal balance or gait. Positive visual hallucination. ASSESSMENT AND PLAN: _Significant change mental status: Entire workup did not show any major abnormality with exception of? Of seizure should be study and tested we will r un this by neurology to see if it is worth having patient on antiseizure medication until it is confirmed. _Orthostatic hypotension, being off metoprolol patient ended up having significant hypertension which will stop midodrine at this point we will put her back on amlodipine 2.5 mg use the second 1 if systolic blood pressures above 150. 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 _Chronic depression and mild anxiety: Was on Lexapro 10 mg a day and lorazepam on as-needed basis. _Chronic diarrhea, mostly IBS and colitis based has been on Questran and Lomotil on as-needed basis. We will hold Lomotil completely to lower the side effect of medication. _Significant reaction to medication including her Ativan and? Of any pain meds which patient does not disclose anything that she takes specially Opium. Has been cleared at this point. _Possible seizure: EEG to be done tomorrow based on the results we will decide whether she can benefit from antiseizure medication or not. _GI prophylaxis: Patient be started on Pepcid 20 mg daily. _DVT prophylaxis: Patient will have knee-high KARLOS hose early mobilization. CODE STATUS: Full code. Discharge planning: Patient to be hopefully discharged tomorrow on 12/06/2023. Objective - Vital Signs Vital signs: Vital Signs Temp 97.8 F 12/05/23 02:23 Pulse 70 12/05/23 02:23 Resp 15 12/05/23 02:23 BP 173/89 12/05/23 02:23 Pulse Ox 95 12/05/23 02:23 FiO2 Intake & Output 12/04/23 12/04/23 12/05/23 06:59 18:59 06:59 Intake Total 950 Balance 950 Intake: Intake, IV Titration 750 Amount Sodium Chloride 0.9% 1, 750 000 ml @ 50 mls/hr IV . Q20H [facility] Rx#:[id number] Oral 200 Other: Voiding Method Toilet Toilet # Voids 3 2 - Labs CBC & Chem 7: 12/02/23 17:41 12/02/23 17:41
[2023-12-06 05:44] VITALS: RESP 16
--- NOTE | 2023-12-06 08:41 | P.PN ---
Subjective Progress Note Date: 12/06/23 Reason for Consult (text): Orthostatic and questionable second-degree block History of present illness: History of present illness: This is a 78-year-old female with past medical history of IBS, hyperlipidemia, depression, anxiety, osteoarthritis. Patient denies any previous history of cardiac disease with no previous cardiac workup. Patient currently denies having any chest pain, shortness of breath. Patient presented to the hospital due to mental status changes which she mentions. We have been asked to evaluate patient for possible second-degree heart block. EKG and telemetry reviewed sinus rhythm with first-degree block with 1 telemetry noting a send jerrod block and nonconducted PAC Chest x-ray: No acute process. COPD changes. CT of the brain: No acute intracranial process. Carotid duplex study revealed no hemodynamically significant stenosis in either internal carotid artery. Echocardiogram reveals normal LV function technically difficult study. CBC within normal limits. INR 0.9. All electrolytes renal function, liver function test within normal limits. Troponin negative x 1. Ammonia level less than 9. Urine drug screen positive for opiates and benzodiazepines. Influenza A, influenza B, RSV, COVID-19 not detected. Urinalysis revealed WBC 12, blood trace, 1+ ketones. Home cardiac medications: Toprol XL 12.5 mg at bedtime 3/5 Telemetry overnight revealed normal sinus rhythm with first-degree block. No other arrhythmias were identified. Patient denies having any chest pain lightheadedness or dizziness. Patient did note orthostatic changes on this morning. Patient is scheduled for discharge home today. Medication changes have been made by attending. TSH is pending. Physical examination: Gen: This is a 78-year-old female in no acute distress VS: reviewed HEENT: Head is atraumatic, normocephalic. Pupils equal, round. Sclerae is anicteric. NECK: Supple. No JVD. LUNGS: Clear to auscultation. No wheezes or rhonchi. No intercostal retractions. HEART: Regular rate and rhythm. No murmur. ABDOMEN: Soft No tenderness. EXTREMITIES: No pedal edema. No calf tenderness. NEUROLOGICAL: Patient is awake, alert and oriented x3. 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 Camargo in 1 to 2 weeks. Nurse practitioner note has been reviewed, I agree with documented findings and plan of care. Patient was seen and examined. Objective - Vital Signs Vital signs: Vital Signs Temp 97.6 F 12/06/23 07:00 Pulse 75 12/06/23 07:00 Resp 16 12/06/23 07:00 BP 166/94 12/06/23 07:00 Pulse Ox 97 12/06/23 07:00 FiO2 Intake & Output 12/05/23 12/06/23 12/06/23 18:59 06:59 18:59 Other: Voiding Method Toilet # Voids 2 3 - Labs CBC & Chem 7: 12/02/23 17:41 12/02/23 17:41
[2023-12-06] MEDS: amLODIPine 2.5 MG TAB PO SCH (10:02)
[2023-12-06] MEDS ORDERED: ASPIRIN 81 MG PO SCH (11:00)
--- NOTE | 2023-12-06 11:01 | P.PN ---
Subjective Progress Note Date: 12/06/23 Patient was initially seen by Dr. Arjun James. Please refer to his note for details. Patient has presented with transient encephalopathy, rule out seizure. I spoke to the patient, who provided me with history. Patient had a syncopal episode in September. She was standing, turning on the music when she fainted without any warning sign. She was out for less than 30 seconds. She remembers falling down, remembers hitting her head on the sofa. Patient states that on , 12/01/2023, she had episode of confusion. Patient states that that day she could not remember [facility], although she has been there numerous times. She did not remember her kids. She did not remember her parents have passed, could not work on the cell phone. Next day on Tuesday, she could not communicate, she was forgetting words, forgetting people. Therefore she came to the hospital. Patient states she is improved. However yesterday while she was trying to eat, she was missing her mouth with the right hand, almost looking like description of being ataxic. Patient denies any history of hypertension, although in the hospital she has been running high blood pressure in 170 range. Some of the work-up during this hospital visit consisted of: Recent orthostatic vitals: Is 180/101 with a heart rate of 76 and that supine, while sitting it's 172/100 with a heart rate of 80 and standing is 151/92 with a heart rate of 82. Patient is afebrile On initial presentation her blood pressure is 174/96. CBC with differential is unremarkable Chemistry panel is unremarkable Urinalysis does not An acute urinary tract infection. UDS: +opiates and Benzo. CT of the head is reported as no acute intracranial process. Nonspecific white matter changes, likely secondary due to chronic small vessel ischemic disease. I personally reviewed the CT and agree with the report. Carotid duplex: Is reported as no hemodynamically significant stenosis in either internal carotid artery. Antegrade flow in both vertebral arteries. EKG: It is reported as sinus rhythm. Low QRS voltage. Possible right ventricular conduction the delay. Minimal ST depression. Borderline EKG. 2D echo: It is reported as normal left ventricular systolic function with EF 55 to 60%. No obvious regional wall motion abnormalities. Left atrial size is normal. No embolic source. Objective - Vital Signs Vital signs: Vital Signs Temp 97.6 F 12/06/23 07:00 Pulse 75 12/06/23 07:00 Resp 16 12/06/23 07:00 BP 166/94 12/06/23 07:00 Pulse Ox 97 12/06/23 07:00 FiO2 Intake & Output 12/05/23 12/06/23 12/06/23 18:59 06:59 18:59 Other: Voiding Method Toilet # Voids 2 3 - Exam Patient's mental status, speech and language functions are normal. Cranial nerves are normal, visual prasad are full. Face is symmetric. Muscle strength is normal no pronator drift. No ataxia. - Labs CBC & Chem 7: 12/02/23 17:41 12/02/23 17:41 Assessment and Plan Assessment: * Episode of confusion, encephalopathy, speech difficulty, unclear cause. Her blood pressure was running high, therefore hypertensive encephalopathy versus TIA is in the differential. Her symptoms lasted for 1-1/2 days and then resolved. Current examination is nonfocal. NIH stroke scale is 0. MRI of the brain revealed no acute stroke. * Elevated blood pressure, likely hypertension. * History of syncopal episode in September 2023. * Orthostatic hypotension * Chronic low back pain Plan: MRI of the brain with and without contrast revealed age-related atrophic and chronic small vessel ischemic change. No acute intracranial process seen. No enhancing lesions seen. I personally reviewed MRI agree with the findings. EEG was mildly abnormal due to intermittent dysrhythmic slowing in the left temporal region with rare sharply contoured waves. This is suggestive of focal cortical neuronal dysfunction. The sharp appearing waves were not clearly epileptiform. If your suspicion for seizures is high, suggest prolonged, sleep deprived EEG. Clinical correlation is strongly recommended. Patient has been running high blood pressures. Her episode of confusion with speech difficulty also raises concern for possible TIA. I would suggest starting her on aspirin 81 mg daily indefinitely. Optimize control of blood pressure. Check B12, folate, TSH, A1c and lipid panel. Hold off antiepileptic medication at this time, as the event could be possible TIA, and EEG was technically limited, borderline. Recommend patient follow-up with Dr. Black, for prolonged EEG testing to rule out any seizure tendency. Patient was notified that per [place] DMV because of her syncopal episodes in the last one was the end of September 2023, to avoid driving for 6 month until no further episodes, avoid heights, avoids swimming unassisted or using heavy machinery. Patient has positive orthostatic hypotension on two different times. Will defer the management to the primary team. Upon discharge recommend the patient to follow-up with Dr Black as an outpatient within 1-2 weeks for prolonged EEG. We'll defer the rest of the medical measure the primary team Neurologically clear for discharge. Addendum (12/21/2023): B12 297, folate 14.7, TSH 2.16, A1c 5.5, lipid panel with cholesterol 202, LDL 95, HDL 92, triglycerides 70. Patient's vitamin B12 is slightly low. I called patient's home today and spoke to her. Informed her to start taking vitamin B12 500 or 1000 mcg sublingually daily. She expressed understanding.
[2023-12-06 14:27] VITALS: BP 189/92; PULSE 71; TEMP 98.6
[2023-12-06 21:32] LABS: Chol/HDL Ratio 2.18 Ratio; LDL Cholesterol,Calculated 95.2 mg/dL (0.0-131.0); VLDL Calculation 14.04 mg/dL (5.00-40.00)
== END 2023-12-06 14:20 | disposition home or self-care (01) ==
LOC: EC 17:10 → 6NMEDSUR 12-03 03:29
PROVIDERS: ADMIT Internal Medicine Geriatric Medicine; ATTEND Internal Medicine Geriatric Medicine
DX: I95.1 Orthostatic hypotension (principal); H53.2 Diplopia; F41.9 Anxiety disorder, unspecified; F32.A Depression, unspecified; E78.5 Hyperlipidemia, unspecified; K52.9 Noninfective gastroenteritis and colitis, unspecified; I10 Essential (primary) hypertension; M19.90 Unspecified osteoarthritis, unspecified site; Z81.8 Family history of other mental and behavioral disorders; Z88.2 Allergy status to sulfonamides; Z79.899 Other long term (current) drug therapy; Z11.52 Encounter for screening for COVID-19
CPT/HCPCS: 96361; 96365; 96366 ×3; 96375; 99285; 36415; 95816; 93005; 93306; 80061; 80053; 84443; 82607; 82140; 82746; 84484; 85025; 85610; 85730; 81001; 80306; 83036; 87636; 71046; 93880; 70450; 70553; G0378 ×4; J2060; J1885 ×3; A9585

== ENCOUNTER → 2024-04-10 | Outpatient (CLI) | payer MEDICARE, BC ==
[2024-04-10 09:32] LABS: HCT 45.2 % (34.0-46.0); HGB 13.7 gm/dL (11.4-16.0); MCH 28.6 pg (25.0-35.0); MCHC 30.3 g/dL (31.0-37.0); MCV 94.7 fL (80.0-100.0); Mean Platelet Volume 7.4; Platelet Count 309 k/uL (150-450); RBC 4.78 m/uL (3.80-5.40); RDW 13.1 % (11.5-15.5); WBC 4.6 k/uL (3.8-10.6)
[2024-04-10 18:10] LABS: NT-Pro-B-Type Natriuretic Pept 434 pg/mL (0-450)
[2024-04-10 18:17] LABS: ALT 14 U/L (8-44); AST 21 U/L (13-35); Albumin 4.6 g/dL (3.8-4.9); Albumin/Globulin Ratio 2.19 Ratio (1.60-3.17); Alkaline Phosphatase 84 U/L (41-126); BUN/Creat Ratio 13.33 Ratio (12.00-20.00); C Reactive Protein, High Sens 0.783 mg/L (0.000-3.000); Calcium 9.4 mg/dL (8.7-10.3); Carbon Dioxide 20.2 mmol/L (21.6-31.8); Chloride 107 mmol/L (96-109); Chol/HDL Ratio 1.99 Ratio; Globulin 2.1 g/dL (1.6-3.3); Glucose 89 mg/dL (70-110); LDL Cholesterol,Calculated 86.4 mg/dL (0.0-131.0); Potassium 4.3 mmol/L (3.5-5.5); Sodium 142 mmol/L (135-145); Total Bilirubin 0.3 mg/dL (0.3-1.2); Total Protein 6.7 g/dL (6.2-8.2)
== END | disposition home or self-care (01) ==
LOC: LABWHC1 08:08
PROVIDERS: ATTEND Student in an Organized Health Care Education/Training Program
DX: E03.9 Hypothyroidism, unspecified (principal); E78.5 Hyperlipidemia, unspecified; E11.22 Type 2 diabetes mellitus with diabetic chronic kidney disease; N18.9 Chronic kidney disease, unspecified; I50.9 Heart failure, unspecified
CPT/HCPCS: 36415; 80053; 80061; 83036; 83880; 84443; 85027; 86141

== ENCOUNTER 2024-08-02 09:04 | Emergency (ER) | payer MEDICARE, BC ==
--- NOTE | 2024-08-02 09:40 | ED ---
General Adult HPI - General Chief complaint: Shortness of Breath Stated complaint: SOB Time Seen by Provider: 08/02/24 09:19 Source: patient, RN notes reviewed Mode of arrival: ambulatory Limitations: no limitations - History of Present Illness Initial comments: Patient is a 79-year-old female present to the emergency department concerns with difficulty breathing. Patient states symptom started around 4 years ago, worse the last couple of weeks. Patient has orthopnea and exertional dyspnea. No leg edema. No chest pain. Patient has had mild cough for the past couple of days. Possible minimal congestion. No fever. Patient did have recent pul monary function test concerning for fibrosis. Patient states she is able to walk to her mailbox before she has to stop and rest because of dyspnea - Related Data Home Medications Medication Instructions Recorded Confirmed Cholestyramine (with Sugar) 378 gm PO DAILY 12/09/22 12/03/23 [Cholestyramine Powder] Escitalopram [Lexapro] 10 mg PO DAILY 12/09/22 12/03/23 Latanoprost [Latanoprost 0.005%] 1 drop BOTH EYES HS PRN 12/09/22 12/03/23 Estradiol Cream [Estrace Cream 1 gm VAGINAL SUWE 12/03/23 12/03/23 0.01%] Ibuprofen [Motrin Ib] 400 mg PO Q8H PRN 12/03/23 12/03/23 Pantoprazole [Protonix] 40 mg PO DAILY 12/03/23 12/03/23 Previous Rx's Medication Instructions Recorded Baclofen [Lioresal] 5 mg PO TID PRN #0 12/06/23 amLODIPine [Norvasc] 2.5 mg PO BID #60 tab 12/06/23 methylPREDNISolone Dose Pack 4 mg PO DIRECTED #21 tab 08/02/24 [Medrol Dose Pack] Allergies Allergy/AdvReac Type Severity Reaction Status Date / Time Sulfa (Sulfonamide Allergy chills,naus Verified 08/02/24 09:12 Antibiotics) ea Review of Systems ROS Statement: Those systems with pertinent positive or pertinent negative responses have been documented in the HPI. ROS Other: All systems not noted in ROS Statement are negative. Constitutional: Denies: fever Eyes: Denies: eye pain ENT: Reports: congestion. Denies: ear pain Respiratory: Reports: cough, dyspnea Cardiovascular: Reports: dyspnea on exertion, orthopnea. Denies: chest pain Gastrointestinal: Denies: abdominal pain Musculoskeletal: Denies: back pain Past Medical History Past Medical History: Asthma Additional Past Medical History / Comment(s): IBS, T2 T5 Fracture, WAS HOSPITALIZED 3 OR 4 YRS AGO IN [place] FOR COLITIS, INCREASED PRESSURE RT EYE- CURRENTLY STABLE WITH EYEDROPS, orthostatic hypotension History of Any Multi-Drug Resistant Organisms: None Reported Past Surgical History: Appendectomy, Breast Surgery, Cholecystectomy, Hysterectomy, Tonsillectomy Additional Past Surgical History / Comment(s): breast biopsies, COLONOSCOPY Past Anesthesia/Blood Transfusion Reactions: Motion Sickness Additional Past Anesthesia/Blood Transfusion Reaction / Comment(s): "balance issue" Past Psychological History: Anxiety, Depression Smoking Status: Never smoker Past Alcohol Use History: Occasional Past Drug Use History: None Reported - Past Family History Mother Family Medical History: Coronary Artery Disease (CAD), Dementia, Myocardial Infarction ([place]) Additional Family Medical History / Comment(s): Mother at age 86 with previous history of myocardial infarction at age 67 requiring CABG. Patient's grandfather at age 60 from a myocardial infarction. Patient's uncle at age 46 from a myocardial infarction and that had been his third heart attack. Father Family Medical History: Dementia Additional Family Medical History / Comment(s): Father was healthy with no major medical problems. Brother(s) Family Medical History: Cancer Additional Family Medical History / Comment(s): Patient has 1 brother with history of prostate cancer. Patient does not have any sisters. Son(s) Additional Family Medical History / Comment(s): Patient has 2 sons and one was diagnosed with diabetes mellitus type 1 at age 26 and 1 son has irritable bowel syndrome. Daughter(s) Additional Family Medical History / Comment(s): Patient has one daughter with history of rheumatoid arthritis and polycystic ovarian disorder. General Exam Limitations: no limitations General appearance: alert, in no apparent distress Head exam: Present: normocephalic Eye exam: Present: normal appearance Neck exam: Present: normal inspection Respiratory exam: Present: decreased breath sounds Cardiovascular Exam: Present: regular rate, normal rhythm GI/Abdominal exam: Present: soft. Absent: tenderness Extremities exam: Present: normal inspection. Absent: pedal edema, calf tenderness Neurological exam: Present: alert Psychiatric exam: Present: normal affect, normal mood Skin exam: Present: normal color Course Vital Signs 08/02/24 08/02/24 08/02/24 09:12 09:23 09:26 Temperature 98.4 F 98.2 F Pulse Rate 95 92 Pulse Rate [ Left Sitting Pulse Oximetery ] Pulse Rate [ Left Standing Pulse Oximetery ] Respiratory 20 19 19 Rate Blood Pressure 194/98 188/114 Blood Pressure [Left Arm Sitting] Blood Pressure [Left Arm Standing] Blood Pressure [Left Arm Supine] O2 Sat by Pulse 96 93 L Oximetry 08/02/24 08/02/24 08/02/24 11:06 11:16 11:19 Temperature 97.9 F Pulse Rate 88 92 102 H Pulse Rate [ Left Sitting Pulse Oximetery ] Pulse Rate [ Left Standing Pulse Oximetery ] Respiratory 18 Rate Blood Pressure 204/112 Blood Pressure [Left Arm Sitting] Blood Pressure [Left Arm Standing] Blood Pressure [Left Arm Supine] O2 Sat by Pulse 93 L Oximetry 08/02/24 08/02/24 08/02/24 11:58 12:00 12:02 Temperature Pulse Rate Pulse Rate [ 95 Left Sitting Pulse Oximetery ] Pulse Rate [ 98 Left Standing Pulse Oximetery ] Respiratory Rate Blood Pressure Blood Pressure 172/97 [Left Arm Sitting] Blood Pressure 163/84 [Left Arm Standing] Blood Pressure 181/94 [Left Arm Supine] O2 Sat by Pulse Oximetry 08/02/24 12:53 Temperature 98.0 F Pulse Rate 100 Pulse Rate [ Left Sitting Pulse Oximetery ] Pulse Rate [ Left Standing Pulse Oximetery ] Respiratory 20 Rate Blood Pressure 177/98 Blood Pressure [Left Arm Sitting] Blood Pressure [Left Arm Standing] Blood Pressure [Left Arm Supine] O2 Sat by Pulse 94 L Oximetry EKG Findings - EKG Results: EKG: interpreted by ERMD (Left axis. First-degree AV block with UT of 216.), sinus rhythm, normal QRS, normal ST/T Medical Decision Making - Medical Decision Making Was pt. sent in by a medical professional or institution (, PA, LIGHT ADJUSTER, urgent care, hospital, or longterm...) When possible be specific @ -No Did you speak to anyone other than the patient for history (EMS, parent, family, police, friend...)? What history was obtained from this source @ -No Did you review nursing and triage notes (agree or disagree)? Why? @ -I reviewed and agree with nursing and triage notes Were old charts reviewed (outside hosp., previous admission, EMS record, old EKG, old radiological studies, urgent care reports/EKG's, longterm records)? Report findings @ -Previous chest x-ray reviewed does not reveal acute process. Differential Diagnosis (chest pain, altered mental status, abdominal pain women, abdominal pain men, vaginal bleeding, weakness, fever, dyspnea, syncope, headache, dizziness, GI bleed, back pain, seizure, CVA, palpatations, mental health, musculoskeletal)? @ -Differential Dyspnea: Coronary syndrome, arrhythmia, tamponade, asthma, COPD, pulmonary embolism, pneumonia, pneumothorax, pulmonary effusion, anaphylaxis, diabetic ketoacidosis, flailed chest, pulmonary contusion, diaphragmatic rupture, anemia, neuromuscular, this is not meant to be an all-inclusive list. EKG interpreted by me (3pts min.). @ -As above X-rays interpreted by me (1pt min.). @ -X-ray shows COPD. Trace effusions. Possible CHF CT interpreted by me (1pt min.). @ -CT scan of the chest shows no evidence of pulmonary embolism. Chronic changes with effusions. Dilated pulmonary artery suggesting pulmonary hypertension U/S interpreted by me (1pt. min.). @ -None done What testing was considered but not performed or refused? (CT, X-rays, U/S, labs)? Why? @ -None What meds were considered but not given or refused? Why? @ -None Did you discuss the management of the patient with other professionals (professionals i.e. , PA, LIGHT ADJUSTER, lab, RT, psych nurse, long term care social worker, pipeline dispatcher, teacher, collection officer, sample case porter)? Give summary @ -Case discussed with practitioner Ciera Bingham who will admit covering Dr. Barrera Was smoking cessation discussed for >3mins.? @ -No Was critical care preformed (if so, how long)? @ -No Were there social determinants of health that impacted care today? How? (Homelessness, low income, unemployed, alcoholism, drug addiction, transportation, low edu. Level, literacy, decrease access to med. care, senior living, r ehab)? @ -No Was there de-escalation of care discussed even if they declined (Discuss DNR or withdrawal of care, Hospice)? DNR status @ -No What co-morbidities impacted this encounter? (DM, HTN, Smoking, COPD, CAD, Cancer, CVA, ARF, Chemo, Hep., AIDS, mental health diagnosis, sleep apnea, morbid obesity)? @ -None Was patient admitted / discharged? Hospital course, mention meds given and route, prescriptions, significant lab abnormalities, going to OR and other pertinent info. @ -Patient presents with dyspnea, worse with exertion. There is some evidence of mild CHF. Case was discussed with Dr. herrera who did come and evaluate patient. Patient will be discharged with follow-up. Patient reevaluated and feels significantly better following medications. Patient requesting discharge multiple times. Undiagnosed new problem with uncertain prognosis? @ -No Drug Therapy requiring intensive monitoring for toxicity (Heparin, Nitro, Insulin, Cardizem)? @ -No Were any procedures done? @ -No Diagnosis/symptom? @ -CHF, COPD Acute, or Chronic, or Acute on Chronic? @ -Acute, acute Uncomplicated (without systemic symptoms) or Complicated (systemic symptoms)? @ -Default Side effects of treatment? @ -No Exacerbation, Progression, or Severe Exacerbation? @ -No Poses a threat to life or bodily function? How? (Chest pain, USA, DC, pneumonia, PE, COPD, DKA, ARF, appy, cholecystitis, CVA, Diverticulitis, Homicidal, Suicidal, threat to staff... and all critical care pts) @ -Threat to pulmonary function - Lab Data Result diagrams: 08/02/24 09:39 08/02/24 09:39 Lab Results 08/02/24 08/02/24 08/02/24 Range/Units 09:39 09:39 09:39 WBC 6.1 (3.8-10.6) k/uL RBC 4.33 (3.80-5.40) m/uL Hgb 12.6 (11.4-16.0) gm/dL Hct 39.4 (34.0-46.0) % MCV 91.0 (80.0-100.0) fL MCH 29.2 (25.0-35.0) pg MCHC 32.1 (31.0-37.0) g/dL RDW 13.5 (11.5-15.5) % Plt Count 296 (150-450) k/uL MPV 7.5 Neutrophils % 76 % Lymphocytes % 16 % Monocytes % 5 % Eosinophils % 2 % Basophils % 0 % Neutrophils # 4.7 (1.3-7.7) k/uL Lymphocytes # 1.0 (1.0-4.8) k/uL Monocytes # 0.3 (0-1.0) k/uL Eosinophils # 0.1 (0-0.7) k/uL Basophils # 0.0 (0-0.2) k/uL Hypochromasia Slight PT 11.0 (10.0-12.5) sec INR 1.0 (<1.2) APTT 24.3 (22.0-30.0) sec D-Dimer 1.14 H (<0.60) mg/L FEU Sodium 141 (137-145) mmol/L Potassium 3.0 L (3.5-5.1) mmol/L Chloride 108 H (98-107) mmol/L Carbon Dioxide 27 (22-30) mmol/L Anion Gap 6 mmol/L BUN 16 (7-17) mg/dL Creatinine 0.58 (0.52-1.04) mg/dL Est GFR (CKD-EPI)AfAm >90 (>60 ml/min/1.73 sqM) Est GFR (CKD-EPI)NonAf 89 (>60 ml/min/1.73 sqM) Glucose 91 (74-99) mg/dL Plasma Lactic Acid Markos (0.7-2.0) mmol/L Calcium 8.7 (8.4-10.2) mg/dL Magnesium 1.9 (1.6-2.3) mg/dL Total Bilirubin 1.0 (0.2-1.3) mg/dL AST 44 H (14-36) U/L ALT 19 (4-34) U/L Alkaline Phosphatase 76 (38-126) U/L Troponin I (0.000-0.034) ng/mL NT-Pro-B Natriuret Pep 1760 pg/mL Total Protein 7.2 (6.3-8.2) g/dL Albumin 4.4 (3.5-5.0) g/dL Influenza Type A (PCR) (Not Detectd) Influenza Type B (PCR) (Not Detectd) RSV (PCR) (Not Detectd) SARS-CoV-2 (PCR) (Not Detectd) 08/02/24 08/02/24 08/02/24 Range/Units 09:39 09:39 09:43 WBC (3.8-10.6) k/uL RBC (3.80-5.40) m/uL Hgb (11.4-16.0) gm/dL Hct (34.0-46.0) % MCV (80.0-100.0) fL MCH (25.0-35.0) pg MCHC (31.0-37.0) g/dL RDW (11.5-15.5) % Plt Count (150-450) k/uL MPV Neutrophils % % Lymphocytes % % Monocytes % % Eosinophils % % Basophils % % Neutrophils # (1.3-7.7) k/uL Lymphocytes # (1.0-4.8) k/uL Monocytes # (0-1.0) k/uL Eosinophils # (0-0.7) k/uL Basophils # (0-0.2) k/uL Hypochromasia PT (10.0-12.5) sec INR (<1.2) APTT (22.0-30.0) sec D-Dimer (<0.60) mg/L FEU Sodium (137-145) mmol/L Potassium (3.5-5.1) mmol/L Chloride (98-107) mmol/L Carbon Dioxide (22-30) mmol/L Anion Gap mmol/L BUN (7-17) mg/dL Creatinine (0.52-1.04) mg/dL Est GFR (CKD-EPI)AfAm (>60 ml/min/1.73 sqM) Est GFR (CKD-EPI)NonAf (>60 ml/min/1.73 sqM) Glucose (74-99) mg/dL Plasma Lactic Acid Markos 1.3 (0.7-2.0) mmol/L Calcium (8.4-10.2) mg/dL Magnesium (1.6-2.3) mg/dL Total Bilirubin (0.2-1.3) mg/dL AST (14-36) U/L ALT (4-34) U/L Alkaline Phosphatase (38-126) U/L Troponin I <0.012 (0.000-0.034) ng/mL NT-Pro-B Natriuret Pep pg/mL Total Protein (6.3-8.2) g/dL Albumin (3.5-5.0) g/dL Influenza Type A (PCR) Not Detected (Not Detectd) Influenza Type B (PCR) Not Detected (Not Detectd) RSV (PCR) Not Detected (Not Detectd) SARS-CoV-2 (PCR) Not Detected (Not Detectd) Disposition Clinical Impression: Congestive heart failure, Acute exacerbation of chronic obstructive pulmonary disease Disposition: HOME SELF-CARE Additional Instructions: Please do follow-up with your lung doctor and primary care physician in the next couple of days for recheck. Return for fever, difficulty breathing, worsening or changing symptoms or any other concerns. Prescription has been sent to pharmacy. Prescriptions: methylPREDNISolone Dose Pack [Medrol Dose Pack] 4 mg PO DIRECTED #21 tab Is patient prescribed a controlled substance at d/c from ED?: No Referrals: Delvin Servin MD [Primary Care Provider] - 1-2 days Abdelrahman James DO [Doctor of Osteopathic Medicine] - 1 Week Time of Disposition: 13:18
[2024-08-02 09:55] LABS: Basophils % (A) 0 %; Eosinophils # (A) 0.1 k/uL (0-0.7); Eosinophils % (A) 2 %; HCT 39.4 % (34.0-46.0); HGB 12.6 gm/dL (11.4-16.0); Hypochromasia Slight; Lymphocytes % (A) 16 %; MCH 29.2 pg (25.0-35.0); MCHC 32.1 g/dL (31.0-37.0); Mean Platelet Volume 7.5; Monocytes # (A) 0.3 k/uL (0-1.0); Monocytes % (A) 5 %; Neutrophils # (A) 4.7 k/uL (1.3-7.7); Neutrophils % (A) 76 %; Platelet Count 296 k/uL (150-450); RBC 4.33 m/uL (3.80-5.40); RDW 13.5 % (11.5-15.5); WBC 6.1 k/uL (3.8-10.6)
[2024-08-02 10:11] LABS: ALT 19 U/L (4-34); African American GFR (CKD) >90 (>60 ml/min/1.73 sqM); Albumin 4.4 g/dL (3.5-5.0); Anion Gap 6 mmol/L; Blood Urea Nitrogen 16 mg/dL (7-17); Calcium 8.7 mg/dL (8.4-10.2); Carbon Dioxide 27 mmol/L (22-30); Chloride 108 mmol/L (98-107); Glucose 91 mg/dL (74-99); Non-African American GFR(CKD) 89 (>60 ml/min/1.73 sqM); Partial Thromboplastin Time 24.3 sec (22.0-30.0); Sodium 141 mmol/L (137-145); Total Protein 7.2 g/dL (6.3-8.2)
[2024-08-02 10:12] LABS: AST 44 U/L (14-36); Magnesium 1.9 mg/dL (1.6-2.3)
[2024-08-02 10:13] LABS: Alkaline Phosphatase 76 U/L (38-126)
--- NOTE | 2024-08-02 10:18 | XR ---
EXAMINATION TYPE: XR chest 2V DATE OF EXAM: 08/02/2024 10:05 AM COMPARISON: 12/02/2023 CLINICAL INDICATION: Female, 79 years old with shortness of breath, history of difficulty breathing, , TECHNIQUE: PA and lateral views FINDINGS: Heart mild to moderately enlarged. Hyperinflation. Interstitial density. Patchy medial right basilar opacity. New blunting of the costophrenic angles. Patchy retrocardiac opacity persists. IMPRESSION: COPD. There is cardiomegaly and new trace bilateral pleural effusions and ongoing patchy lower lung o pacities. Correlate for superimposed CHF with pulmonary vascular congestion. Given the basilar patchy densities, pneumonia should be excluded on a clinical basis. [facility], , 08/02/2024 10:16 AM
[2024-08-02 10:20] LABS: NT-Pro-B-Type Natriuretic Pept 1760 pg/mL
--- NOTE | 2024-08-02 10:47 | CT ---
EXAMINATION TYPE: CT angio chest DATE OF EXAM: 08/02/2024 COMPARISON: CLINICAL INDICATION: Female, 79 years old with history of dyspnea; [facility], TECHNIQUE: Multiple axial images are obtained through the thorax following the uneventful administration nonioni c IV contrast. The exam was performed according to the department PE CTA protocol Automated exposure control for dose reduction was used. FINDINGS: There are broad bands of interstitial density consistent within the lung bases with interstitial scar ring or fibrosis. There is traction bronchiectasis in the lower lobes. There are small bilateral pleural effusions. There is no airspace consolidation. The main pulmonary artery is 3.3 cm consistent with pulmonary hypertension. There are no filling defe cts within the pulmonary arterial circulation to suggest pulmonary embolus. Limited scanning through the upper abdomen reveals no gross abnormality. No focal osseous lesions are seen. There is pectus excavatum deformity of the anterior chest. IMPRESSION: 1. No evidence of pulmonary embolism. 2. Chronic lung changes in the lung bases as described above. 3. Small bilateral pleural effusions. 4. Mildly dilated pulmonary artery suggestive of pulmonary hypertension. [facility], , 08/02/2024 10:44 AM
[2024-08-02] MEDS: IPRATROPIUM-ALBUTEROL 3 ML NEB INHALATION STA (11:06)
[2024-08-02] MEDS: MAGNESIUM OXIDE 400 MG TAB PO SCH (11:08)
[2024-08-02] MEDS: MAGNESIUM SULFATE-D5W PMX 1 GM in DEXTROSE/WATER 1 100ML.BAG IVPB ONE (11:08)
--- NOTE | 2024-08-02 11:33 | P.HPIM ---
History of Present Illness Pleasant 79-year-old female came with complaints of shortness of breath patient received steroids and nasal treatments after which patient has significant improvement in her breathing. Patient denied any orthopnea paroxysmal nocturnal dyspnea patient BNP is not very high chest x-ray was suspicious for pulmonary edema although patient clinically is not in CHF at this time patient denied any history of congestive heart failure. Patient had a recent pulmonary function test which showed severe obstructive lung disease along with pectus excavated him probably contributing to some of the restrictive lung disease as well as fibrosis as per the pulmonary function test follows with Dr. Castro as an outpatient. Patient has history of orthostatic hypotension for which patient is on fludrocortisone at home although her blood pressure is significantly higher here we will check the orthostatic vitals and blood pressure again if they come down patient will be discharged today as her breathing significantly improved at this time. REVIEW OF SYSTEMS: All other systems are negative except those mentioned in the HPI PHYSICAL EXAMINATION: GENERAL: The patient is alert and oriented x3, not in any acute distress. Well developed, well nourished. HEENT: Pupils are round and equally reacting to light. EOMI. No scleral icterus. No conjunctival pallor. Normocephalic, atraumatic. No pharyngeal erythema. No thyromegaly. CARDIOVASCULAR: S1 and S2 present. No murmurs, rubs, or gallops. PULMONARY: Chest is clear to auscultation, no wheezing or crackles. ABDOMEN: Soft, nontender, nondistended, normoactive bowel sounds. No palpable organomegaly. MUSCULOSKELETAL: No joint swelling or deformity. EXTREMITIES: No cyanosis, clubbing, or pedal edema. NEUROLOGICAL: Gross neurological examination did not reveal any focal deficits. SKIN: No rashes. Assessment and plan -Shortness of breath probably secondary to asthma exacerbation symptoms significantly improved patient probably will be discharged if her blood pressure is stable. Patient will be discharged on weaning dose of prednisone and she will continue her inhaled steroids and albuterol. -History of orthostatic hypotension although patient blood pressure is significa ntly higher at this time plan as mentioned above if patient blood pressure continues to be significantly higher I will ask her to hold off on fludrocortisone -Gastroesophageal reflux disease continue with pantoprazole -Depression continue with Lexapro Patient probably will be discharged later today Past Medical History Past Medical History: Asthma Additional Past Medical History / Comment(s): IBS, T2 T5 Fracture, WAS H OSPITALIZED 3 OR 4 YRS AGO IN [place] FOR COLITIS, INCREASED PRESSURE RT EYE- CURRENTLY STABLE WITH EYEDROPS, orthostatic hypotension History of Any Multi-Drug Resistant Organisms: None Reported Past Surgical History: Appendectomy, Breast Surgery, Cholecystectomy, Hysterectomy, Tonsillectomy Additional Past Surgical History / Comment(s): breast biopsies, COLONOSCOPY Past Anesthesia/Blood Transfusion Reactions: Motion Sickness Additional Past Anesthesia/Blood Transfusion Reaction / Comment(s): "balance issue" Past Psychological History: Anxiety, Depression Smoking Status: Never smoker Past Alcohol Use History: Occasional Past Drug Use History: None Reported - Past Family History Mother Family Medical History: Coronary Artery Disease (CAD), Dementia, Myocardial Infarction ([place]) Additional Family Medical History / Comment(s): Mother at age 86 with previous history of myocardial infarction at age 67 requiring CABG. Patient's grandfather at age 60 from a myocardial infarction. Patient's uncle at age 46 from a myocardial infarction and that had been his third heart attack. Father Family Medical History: Dementia Additional Family Medical History / Comment(s): Father was healthy with no major medical problems. Brother(s) Family Medical History: Cancer Additional Family Medical History / Comment(s): Patient has 1 brother with history of prostate cancer. Patient does not have any sisters. Son(s) Additional Family Medical History / Comment(s): Patient has 2 sons and one was diagnosed with diabetes mellitus type 1 at age 26 and 1 son has irritable bowel syndrome. Daughter(s) Additional Family Medical History / Comment(s): Patient has one daughter with history of rheumatoid arthritis and polycystic ovarian disorder. Medications and Allergies Home Medications Medication Instructions Recorded Confirmed Type Cholestyramine (with Sugar) 378 gm PO DAILY 12/09/22 12/03/23 History [Cholestyramine Powder] Escitalopram [Lexapro] 10 mg PO DAILY 12/09/22 12/03/23 History Latanoprost [Latanoprost 0.005%] 1 drop BOTH EYES HS PRN 12/09/22 12/03/23 History Estradiol Cream [Estrace Cream 1 gm VAGINAL SUWE 12/03/23 12/03/23 History 0.01%] Ibuprofen [Motrin Ib] 400 mg PO Q8H PRN 12/03/23 12/03/23 History Pantoprazole [Protonix] 40 mg PO DAILY 12/03/23 12/03/23 History Baclofen [Lioresal] 5 mg PO TID PRN #0 12/06/23 12/03/23 Rx amLODIPine [Norvasc] 2.5 mg PO BID #60 tab 12/06/23 Rx methylPREDNISolone Dose Pack 4 mg PO DIRECTED #21 tab 08/02/24 Rx [Medrol Dose Pack] Allergies Allergy/AdvReac Type Severity Reaction Status Date / Time Sulfa (Sulfonamide Allergy chills,naus Verified 08/02/24 09:12 Antibiotics) ea Physical Exam Vitals: Vital Signs Temp Pulse Resp BP Pulse Ox 08/02/24 11:19 97.9 F 102 H 18 204/112 93 L 08/02/24 11:16 92 08/02/24 11:06 88 08/02/24 09:26 19 08/02/24 09:23 98.2 F 92 19 188/114 93 L 08/02/24 09:12 98.4 F 95 20 194/98 96 Intake and Output 08/01/24 08/02/24 08/02/24 22:59 06:59 14:59 Other: Weight 72.575 kg Results CBC & Chem 7: 08/02/24 09:39 08/02/24 09:39 Labs: Abnormal Lab Results - Last 24 Hours (Table) 08/02/24 08/02/24 Range/Units 09:39 09:39 D-Dimer 1.14 H (<0.60) mg/L FEU Potassium 3.0 L (3.5-5.1) mmol/L Chloride 108 H (98-107) mmol/L AST 44 H (14-36) U/L
[2024-08-02] MEDS: amLODIPine 5 MG TAB PO STA (11:53)
[2024-08-02] MEDS: FUROSEMIDE 10 MG/ML 4 ML VIAL IV STA (12:00)
[2024-08-02] MEDS: POTASSIUM CHLORIDE ER 20 MEQ TAB.ER PO STA (12:02)
[2024-08-02 12:53] VITALS: BP 177/98; PULSE 100; RESP 20; TEMP 98
== END 2024-08-02 13:19 | disposition home or self-care (01) ==
LOC: EC 09:04
CPT/HCPCS: 36415; 71046; 71275; 80053; 83605; 83735; 83880; 84484; 85025; 85379; 85610; 85730; 87636; 93005; 94640; 96365; 96375; 99285

== ENCOUNTER → 2024-08-18 | Outpatient (CLI) | payer MEDICARE, BC ==
[2024-08-18 12:53] LABS: HCT 44.6 % (37.2-46.3); MCH 28.8 pg (27.0-32.0); MCHC 31.4 g/dL (32.0-37.0); MCV 91.8 FL (80.0-97.0); NRBC Per 100 WBC 0 X 10*3/uL (0.00-0.01); Platelet Count 343 X 10*3/uL (140-440); RBC 4.86 X 10*6/uL (4.10-5.20); RDW 13.7 % (11.5-14.5); WBC 6.59 X 10*3/uL (4.50-10.00)
[2024-08-18 14:14] LABS: LDL Cholesterol,Calculated 107.6 mg/dL (0.0-131.0); VLDL Calculation 12.44 mg/dL (5.00-40.00)
[2024-08-18 14:15] LABS: ALT 13 U/L (8-44); AST 24 U/L (13-35); Albumin 4.5 g/dL (3.8-4.9); Albumin/Globulin Ratio 1.88 Ratio (1.60-3.17); Alkaline Phosphatase 87 U/L (41-126); BUN/Creat Ratio 19.78 Ratio (12.00-20.00); Blood Urea Nitrogen 17.8 mg/dL (9.0-27.0); Calcium 9.6 mg/dL (8.7-10.3); Carbon Dioxide 25.1 mmol/L (21.6-31.8); Chloride 104 mmol/L (96-109); Globulin 2.4 g/dL (1.6-3.3); Glucose 90 mg/dL (70-110); Potassium 4.6 mmol/L (3.5-5.5); Sodium 141 mmol/L (135-145); Total Bilirubin 0.4 mg/dL (0.3-1.2); Total Protein 6.9 g/dL (6.2-8.2)
[2024-08-18 14:43] LABS: NT-Pro-B-Type Natriuretic Pept 423 pg/mL (0-450)
== END | disposition home or self-care (01) ==
LOC: LABWHC1 07:39
PROVIDERS: ATTEND Student in an Organized Health Care Education/Training Program
DX: I50.9 Heart failure, unspecified (principal); E11.9 Type 2 diabetes mellitus without complications; E78.5 Hyperlipidemia, unspecified; D72.9 Disorder of white blood cells, unspecified; R79.89 Other specified abnormal findings of blood chemistry
CPT/HCPCS: 36415; 80053; 80061; 83036; 83880; 85027

== ENCOUNTER → 2024-11-22 | Outpatient (CLI) | payer MEDICARE, BC ==
--- NOTE | 2024-11-26 07:25 | MM ---
Reason for Exam: Screening (asymptomatic). Last mammogram was performed 1 year(s) and 1 month(s) ago. Patient History: Menarche at age 12. First Full-Term at age 22. Currently using Estrogen, beginning at age 73 for 5 years. Maternal grandmother had breast cancer at or over age 50. Risk Values: Janiya 5 year model risk: 1.7%. NCI Lifetime model risk: 3.0%. Prior Study Comparison: 01/07/2014 Bilateral Screening Mammogram, [facility]. 09/17/2014 Bilateral Screening Mammogram, [facility]. 08/06/2022 Bilateral Screening Mammogram, [facility]. 10/27/2023 Bilateral Screening Mammogram, [facility]. Tissue Density: The breasts are extremely dense, which lowers the sensitivity of mammography. Findings: Analyzed By CAD. Right breast: There is no suspicious group of microcalcifications or new suspicious mass. Left breast: There is no suspicious group of microcalcifications or new suspicious mass. Overall Assessment: Negative, BI-RAD 1 Management: Screening Mammogram of both breasts in [address] [facility] will attempt to contact patient to return for supplemental views and ultrasound if indicated. Patient should continue monthly self-breast exams. A clinical breast exam by your physician is recommended on an annual basis. This exam should not preclude additional follow-up of suspicious palpable abnormalities. Note on Janiya scores and lifetime risk: 1. A Janiya score greater than 3% is considered moderate risk. If this is the case, consider specialist referral to assess eligibility for a risk reducing agent. 2. If overall lifetime risk for the development of breast cancer is 20% or higher, the patient may qualify for future screening with alternating mammogram and breast MRI. [facility], , 11/26/2024 7:21 AM. Electronically signed and approved by: Abdelrahman Bryan DO
== END | disposition home or self-care (01) ==
LOC: RADMAMWWP 16:17
PROVIDERS: ATTEND Internal Medicine Geriatric Medicine
DX: Z12.31 Encounter for screening mammogram for malignant neoplasm of breast (principal); R92.343 Mammographic extreme density, bilateral breasts; Z80.3 Family history of malignant neoplasm of breast
CPT/HCPCS: 77063; 77067

== ENCOUNTER 2025-03-18 08:11 | Emergency (ER) | payer BC, MEDICARE ==
[2025-03-18 08:18] VITALS: RESP 18
--- NOTE | 2025-03-18 09:03 | ED ---
General Adult HPI - General Chief complaint: Back Pain/Injury Stated complaint: Fall, right side back pain Time Seen by Provider: 03/18/25 08:20 Source: patient, RN notes reviewed, old records reviewed Mode of arrival: ambulatory Limitations: no limitations - History of Present Illness Initial comments: This is a 79-year-old female who presents to the emergency department stating that this morning she up to go to bathroom and she lost her balance and fell and hit her right thorax on the toilet. Patient did not hit her head or neck. Patient not on blood thinners. Patient denies hitting her hips or lower extremities. Patient [place] any upper extremity injury. Patient denies any site of bleeding. - Related Data Home Medications Medication Instructions Recorded Confirmed Cholestyramine (with Sugar) 378 gm PO DAILY 12/09/22 12/03/23 [Cholestyramine Powder] Escitalopram [Lexapro] 10 mg PO DAILY 12/09/22 12/03/23 Latanoprost [Latanoprost 0.005%] 1 drop BOTH EYES HS PRN 12/09/22 12/03/23 Estradiol Cream [Estrace Cream 1 gm VAGINAL SUWE 12/03/23 12/03/23 0.01%] Ibuprofen [Motrin Ib] 400 mg PO Q8H PRN 12/03/23 12/03/23 Pantoprazole [Protonix] 40 mg PO DAILY 12/03/23 12/03/23 Previous Rx's Medication Instructions Recorded Baclofen [Lioresal] 5 mg PO TID PRN #0 12/06/23 amLODIPine [Norvasc] 2.5 mg PO BID #60 tab 12/06/23 methylPREDNISolone Dose Pack 4 mg PO DIRECTED #21 tab 08/02/24 [Medrol Dose Pack] Ketorolac [Toradol] 10 mg PO Q8HR #15 tab 03/18/25 Allergies Allergy/AdvReac Type Severity Reaction Status Date / Time Sulfa (Sulfonamide Allergy chills,naus Verified 03/18/25 08:18 Antibiotics) ea Review of Systems ROS Statement: Those systems with pertinent positive or pertinent negative responses have been documented in the HPI. ROS Other: All systems not noted in ROS Statement are negative. Past Medical History Past Medical History: Asthma Additional Past Medical History / Comment(s): IBS, T2 T5 Fracture, WAS HOSPITALIZED 3 OR 4 YRS AGO IN [place] FOR COLITIS, INCREASED PRESSURE RT EYE- CURRENTLY STABLE WITH EYEDROPS, orthostatic hypotension History of Any Multi-Drug Resistant Organisms: None Reported Past Surgical History: Appendectomy, Breast Surgery, Cholecystectomy, Hysterectomy, Tonsillectomy Additional Past Surgical History / Comment(s): breast biopsies, COLONOSCOPY Past Anesthesia/Blood Transfusion Reactions: Motion Sickness Additional Past Anesthesia/Blood Transfusion Reaction / Comment(s): "balance issue" Past Psychological History: Anxiety, Depression Smoking Status: Never smoker Past Alcohol Use History: Occasional Past Drug Use History: None Reported - Past Family History Mother Family Medical History: Coronary Artery Disease (CAD), Dementia, Myocardial Infarction ([place]) Additional Family Medical History / Comment(s): Mother at age 86 with previous history of myocardial infarction at age 67 requiring CABG. Patient's grandfather at age 60 from a myocardial infarction. Patient's uncle at age 46 from a myocardial infarction and that had been his third heart attack. Father Family Medical History: Dementia Additional Family Medical History / Comment(s): Father was healthy with no major medical problems. Brother(s) Family Medical History: Cancer Additional Family Medical History / Comment(s): Patient has 1 brother with history of prostate cancer. Patient does not have any sisters. Son(s) Additional Family Medical History / Comment(s): Patient has 2 sons and one was diagnosed with diabetes mellitus type 1 at age 26 and 1 son has irritable bowel syndrome. Daughter(s) Additional Family Medical History / Comment(s): Patient has one daughter with history of rheumatoid arthritis and polycystic ovarian disorder. General Exam - General Exam Comments Initial Comments: GENERAL: Patient is well-developed and well-nourished. Patient is nontoxic and well- hydrated and is in mild distress. ENT: Neck is soft and supple. No significant lymphadenopathy is noted. Oropharynx is clear. Moist mucous membranes. Neck has full range of motion without eliciting any pain. EYES: The sclera were anicteric and conjunctiva were pink and moist. Extraocular movements were intact and pupils were equal round and reactive to light. Eyelids were unremarkable. PULMONARY: Unlabored respirations. Good breath sounds bilaterally. No audible rales rhonchi or wheezing was noted. CARDIOVASCULAR: There is a regular rate and rhythm without any murmurs gallops or rubs. Patient has right lateral thoracic tenderness to palpation ABDOMEN: Soft and nontender with normal bowel sounds. SKIN: Skin is clear with no lesions or rashes and otherwise unremarkable. NEUROLOGIC: Patient is alert and oriented x3. Cranial nerves II through XII are grossly intact. Motor and sensory are also intact. Normal speech, volume and content. Symmetrical smile. MUSCULOSKELETAL: Normal extremities with adequate strength and full range of motion. No lower extremity swelling or edema. No calf tenderness. LYMPHATICS: No significant lymphadenopathy is noted PSYCHIATRIC: Normal psychiatric evaluation. Limitations: no limitations Course Vital Signs 03/18/25 08:15 Temperature 97.8 F Pulse Rate 88 Respiratory 18 Rate Blood Pressure 144/83 O2 Sat by Pulse 98 Oximetry Medical Decision Making - Medical Decision Making Was pt. sent in by a medical professional or institution (, SIM, RESEARCH DEVELOPMENT MANAGER, urgent care, hospital, or snf...) When possible be specific @ -No Did you speak to anyone other than the patient for history (EMS, parent, family, police, friend...)? What history was obtained from this source @ -No Did you review nursing and triage notes (agree or disagree)? Why? @ -I reviewed and agree with nursing and triage notes Were old charts reviewed (outside hosp., previous admission, EMS record, old EKG, old radiological studies, urgent care reports/EKG's, snf records)? Report findings @ -No old charts were reviewed Differential Diagnosis? @ -Differential Chest Pain: Stable Angina, Unstable Angina, STEMI, NSTEMI Aortic Dissection, Pneumothorax, Musculoskeletal, Esophageal Spasm GERD, Cholecystitis, Pancreatitis, Zoster, this is not meant to be an all-inclusive list. EKG interpreted by me (3pts min.). @ -As above X-rays interpreted by me (1pt min.). @ -Chest x-ray and rib x-ray show no acute abnormality CT interpreted by me (1pt min.). @ -None done U/S interpreted by me (1pt. min.). @ -None done What testing was considered but not performed or refused? (CT, X-rays, U/S, labs)? Why? @ -None What meds were considered but not given or refused? Why? @ -None Did you discuss the management of the patient with other professionals (professionals i.e. , SIM, RESEARCH DEVELOPMENT MANAGER, lab, RT, psych nurse, manager social responsibility, skeet operator, teacher, vice squad police officer, case sealer)? Give summary @ -No Was smoking cessation discussed for >3mins.? @ -No Was critical care preformed (if so, how long)? @ -No Were there social determinants of health that impacted care today? How? (Homelessness, low income, unemployed, alcoholism, drug addiction, transportation, low edu. Level, literacy, decrease access to med. care, [place] [facility], rehab)? @ -No Was there de-escalation of care discussed even if they declined (Discuss DNR or withdrawal of care, Hospice)? DNR status @ -No What co-morbidities impacted this encounter? (DM, HTN, Smoking, COPD, CAD, Cancer, CVA, ARF, Chemo, Hep., AIDS, mental health diagnosis, sleep apnea, morbid obesity)? @ -None Was patient admitted / discharged? Hospital course, mention meds given and route, prescriptions, significant lab abnormalities, going to OR and other pertinent info. @ -Patient received Toradol in the emergency department x-ray was did not show any fractures. Patient will be discharged home on Toradol Undiagnosed new problem with uncertain prognosis? @ -No Drug Therapy requiring intensive monitoring for toxicity (Heparin, Nitro, Insulin, Cardizem)? @ -No Were any procedures done? @ -No Diagnosis/symptom? @ -Rib pain Acute, or Chronic, or Acute on Chronic? @ -Acute Uncomplicated (without systemic symptoms) or Complicated (systemic symptoms)? @ -Uncomplicated Side effects of treatment? @ -No Exacerbation, Progression, or Severe Exacerbation? @ -No Poses a threat to life or bodily function? How? (Chest pain, [place], MS, pneumonia, PE, COPD, DKA, ARF, appy, cholecystitis, CVA, Diverticulitis, Homicidal, Suicidal, threat to staff... and all critical care pts) @ -No Disposition Clinical Impression: Rib pain Disposition: HOME SELF-CARE Condition: Good Prescriptions: Ketorolac [Toradol] 10 mg PO Q8HR #15 tab Is patient prescribed a controlled substance at d/c from ED?: No Referrals: Delvin Servin MD [Primary Care Provider] - 1-2 days Time of Disposition: 09:47
[2025-03-18] MEDS: KETOROLAC 15 MG/ML 1 ML VIAL IM STA (09:14)
--- NOTE | 2025-03-18 09:30 | XR ---
EXAMINATION TYPE: XR ribs RT w pa chest xray DATE OF EXAM: 03/18/2025 9:11 AM COMPARISON: 08/02/2024 CLINICAL INDICATION: Female, 79 years old with history of Fall; PHH, pain TECHNIQUE: XR ribs RT w pa chest xray; Frontal and oblique views of the ribs with frontal chest radio graph. FINDINGS: The ribs have a normal appearance. No evidence of fracture. Overall, the lungs are clear. The cardiac silhouette is normal in size. The remaining osseous structures are intact. COPD changes with tenting the diaphragm with increased lucency along apices. IMPRESSION: Limited evaluation of overlapping soft tissues, No acute osseous pathology. [facility], , 03/18/2025 9:28 AM
[2025-03-18 09:58] VITALS: BP 136/84; PULSE 89; TEMP 97.9
== END 2025-03-18 09:56 | disposition home or self-care (01) ==
LOC: EC 08:11
DX: R07.81 Pleurodynia (principal); Z88.2 Allergy status to sulfonamides
CPT/HCPCS: 71101; 99283; 96372; J1885

== ENCOUNTER → 2025-03-26 | Outpatient (CLI) | payer MEDICARE, BC ==
--- NOTE | 2025-03-26 08:54 | US ---
EXAMINATION TYPE: US abdomen complete DATE OF EXAM: 03/26/2025 COMPARISON: NONE CLINICAL INDICATION: Female, 79 years old with history of R10.84 GENERALIZED ABDOMINAL PAIN; right si de pain patient fell. No gallbladder or appendix. Limited due to bowel gas. TECHNIQUE: Grayscale and color Doppler imaging of the abdomen was performed. FINDINGS: EXAM MEASUREMENTS: Liver Length: 14.8 cm Gallbladder Wall: Surgically absent CBD: .3 cm, color Doppler imaging was utilized to isolate the common bile duct for measurement. Spleen: 8.6 cm Right Kidney: 9.7 x 3.6 x 4.2 cm Left Kidney: 11 x 4.7 x 3.9 cm [employer] NOTES: Pancreas: Obscured by bowel gas Liver: wnl, no dilated ducts, masses or cysts. Gallbladder: Surgically absent Evidence for sonographic Talbot's sign: No CBD: wnl Spleen: wnl Right Kidney: wnl, No hydronephrosis, calculi or masses seen Left Kidney: wnl, No hydronephrosis, calculi or masses seen Upper IVC: wnl Abd Aorta: wnl IMPRESSION: 1. No acute ultrasound abdomen abnormality. [facility], , 03/26/2025 8:52 AM
== END | disposition home or self-care (01) ==
LOC: RADUSWWP 08:10
PROVIDERS: ATTEND Internal Medicine Geriatric Medicine
DX: R10.84 Generalized abdominal pain (principal)
CPT/HCPCS: 76700

== ENCOUNTER 2025-03-27 11:06 | Emergency (ER) | payer MEDICARE, BC ==
[2025-03-27 11:14] VITALS: BP 140/84; PULSE 94; RESP 18; TEMP 97.9
--- NOTE | 2025-03-27 13:13 | ED ---
Fall HPI - General Chief Complaint: Altered Mental Status Stated Complaint: Abn Labs Time Seen by Provider: 03/27/25 12:05 Source: patient, family, RN notes reviewed Mode of arrival: ambulatory Limitations: no limitations - History of Present Illness Initial Comments: This is a 79-year-old female who presents to the emergency department for confusion and altered mental status. Patient had a fall on 03/18 and since then has had some confusion. She followed up with her PCP who advised she come to the emergency department for a CT scan of the brain. States that she also feels very shaky and is having trouble thinking clearly. Denies any chest pain or shortness of breath. MD Complaint: fall - Related Data Home Medications Medication Instructions Recorded Confirmed Cholestyramine (with Sugar) 378 gm PO DAILY 12/09/22 12/03/23 [Cholestyramine Powder] Escitalopram [Lexapro] 10 mg PO DAILY 12/09/22 12/03/23 Latanoprost [Latanoprost 0.005%] 1 drop BOTH EYES HS PRN 12/09/22 12/03/23 Estradiol Cream [Estrace Cream 1 gm VAGINAL SUWE 12/03/23 12/03/23 0.01%] Ibuprofen [Motrin Ib] 400 mg PO Q8H PRN 12/03/23 12/03/23 Pantoprazole [Protonix] 40 mg PO DAILY 12/03/23 12/03/23 Previous Rx's Medication Instructions Recorded Baclofen [Lioresal] 5 mg PO TID PRN #0 12/06/23 amLODIPine [Norvasc] 2.5 mg PO BID #60 tab 12/06/23 methylPREDNISolone Dose Pack 4 mg PO DIRECTED #21 tab 08/02/24 [Medrol Dose Pack] Ketorolac [Toradol] 10 mg PO Q8HR #15 tab 03/18/25 Allergies Allergy/AdvReac Type Severity Reaction Status Date / Time Sulfa (Sulfonamide Allergy chills,naus Verified 03/27/25 11:14 Antibiotics) ea Review of Systems ROS Statement: Those systems with pertinent positive or pertinent negative responses have been documented in the HPI. ROS Other: All systems not noted in ROS Statement are negative. Past Medical History Past Medical History: Asthma Additional Past Medical History / Comment(s): IBS, T2 T5 Fracture, WAS HOSPITALIZED 3 OR 4 YRS AGO IN [place] FOR COLITIS, INCREASED PRESSURE RT EYE- CURRENTLY STABLE WITH EYEDROPS, orthostatic hypotension History of Any Multi-Drug Resistant Organisms: None Reported Past Surgical History: Appendectomy, Breast Surgery, Cholecystectomy, Hysterecto my, Tonsillectomy Additional Past Surgical History / Comment(s): breast biopsies, COLONOSCOPY Past Anesthesia/Blood Transfusion Reactions: Motion Sickness Additional Past Anesthesia/Blood Transfusion Reaction / Comment(s): "balance issue" Past Psychological History: Anxiety, Depression Smoking Status: Never smoker Past Alcohol Use History: Occasional Past Drug Use History: None Reported - Past Family History Mother Family Medical History: Coronary Artery Disease (CAD), Dementia, Myocardial Infarction ([place]) Additional Family Medical History / Comment(s): Mother at age 86 with previous history of myocardial infarction at age 67 requiring CABG. Patient's grandfather at age 60 from a myocardial infarction. Patient's uncle at age 46 from a myocardial infarction and that had been his third heart attack. Father Family Medical History: Dementia Additional Family Medical History / Comment(s): Father was healthy with no major medical problems. Brother(s) Family Medical History: Cancer Additional Family Medical History / Comment(s): Patient has 1 brother with history of prostate cancer. Patient does not have any sisters. Son(s) Additional Family Medical History / Comment(s): Patient has 2 sons and one was diagnosed with diabetes mellitus type 1 at age 26 and 1 son has irritable bowel syndrome. Daughter(s) Additional Family Medical History / Comment(s): Patient has one daughter with history of rheumatoid arthritis and polycystic ovarian disorder. General Exam Limitations: no limitations General appearance: alert, in no apparent distress Head exam: Present: atraumatic, normocephalic, normal inspection Eye exam: Present: normal appearance, PERRL, EOMI. Absent: scleral icterus, conjunctival injection, periorbital swelling Respiratory exam: Present: normal lung sounds bilaterally. Absent: respiratory distress, wheezes, rales, rhonchi, stridor Cardiovascular Exam: Present: regular rate, normal rhythm Neurological exam: Present: alert, oriented X3, CN II-XII intact Psychiatric exam: Present: normal affect, normal mood Skin exam: Present: warm, dry, intact, normal color. Absent: rash Course Vital Signs 03/27/25 11:11 Temperature 97.9 F Pulse Rate 94 Respiratory 18 Rate Blood Pressure 140/84 O2 Sat by Pulse 98 Oximetry Medical Decision Making - Medical Decision Making This is a 79-year-old female who presents to the emergency department for confusion following a fall. Patient left AMA from the waiting room following CT scan of the brain, which was unremarkable. However she left prior to completion of ordered laboratory studies and full evaluation. - Radiology Data Radiology results: report reviewed, image reviewed Disposition Clinical Impression: Altered mental status Disposition: LEFT AGAINST MEDICAL ADVICE Referrals: Delvin Servin MD [Primary Care Provider] - 1-2 days
--- NOTE | 2025-03-27 13:21 | CT ---
EXAMINATION TYPE: CT brain wo con DATE OF EXAM: 03/27/2025 12:54 PM COMPARISON: 12/02/2023 CLINICAL INDICATION: Female, 79 years old with history of AMS, AMS TECHNIQUE: CT of the brain is performed utilizing 3 mm thick sections through the posterior fossa and 3 mm thick sections through the remaining calvarium. Study is performed within 24 hours of arrival to the hospital. Contrast used: mL of , (none if empty) CT DLP: 1186.5 mGycm, Automated exposure control for dose reduction was used. FINDINGS: No abnormal hyperdensity is present to suggest an acute intracranial hemorrhage. No mass lesion is evident. No acute infarcts are evident. Mild diffuse periventricular white matter hypodensity may be present, likely on the basis of chronic white matter ischemic changes. Findings appear stable from comparison Ventricles and sulci are mildly prominent for the patient age. Paranasal sinuses and mastoid air cells within the [id number] are clear. IMPRESSION: 1. No acute intracranial process. Follow up MRI can be performed as clinically indicated. 2. Chronic appearing periventricular white matter ischemic type changes [facility], , 03/27/2025 1:18 PM
== END 2025-03-27 14:53 | disposition left against medical advice (07) ==
LOC: EC 11:06
DX: R41.82 Altered mental status, unspecified (principal); Z88.2 Allergy status to sulfonamides; Z53.29 Procedure and treatment not carried out because of patient's decision for other reasons
CPT/HCPCS: 70450; 99285